=== PATIENT | female | born 1960 | race Caucasian/White ===

== ENCOUNTER → 2020-01-31 | Outpatient (CLI) | payer MEDICARE ==
[~2020-01-31] MED LIST: ACYC5CRE2 TP; ATOR10TA60 PO; CELE200C PO; CETI10TA16 PO; CITA40TA12 PO; FLUT100D IH; HYDR-2145 PO; HYDR-2769 PO; IOHEXOL 180 MG/ML 10 ML VIAL. ONE; IPRA0.2S5 IH; LEVO75TA PO; MULT-475 PO; OMEP20CA16 PO; OXYC5CAP PO; POTA10TA12 PO; PRAM0.255 PO; PREG200C PO; TIZA4TAB2 PO; VALA10008 PO; VENTOLIN HFA18 GM INH; methylPREDNISolone ACETATE 40 MG/ML VIAL. ONE; methylPREDNISolone ACETATE 80 MG/ML VIAL. ONE
--- NOTE | 2020-01-31 14:53 | PAIN ---
DATE OF SERVICE: 01/31/2020 INITIAL CONSULTATION FOR PAIN CLINIC CHIEF COMPLAINT: Low back and left lower extremity pain. HISTORY OF PRESENT ILLNESS: The patient is a 59-year-old female who presents with history of pain in the low back, left lower extremity for about 5 years. The patient reports it is in the low back, across the low back, mostly on the left side in the posterior gluteus, posterolateral thigh, lateral anterior thigh, anterior medial thigh, and medial lower leg. The patient reports she also has pain in both the knees, but this is separate from the low back and left leg. The patient reports it is constant, sharp, shooting in the leg, changes during the day, worse with activity, walking, standing, changing positions with numbness, radiating pain, awakens her from sleep at night at least once a night, does not affect her bowel or bladder control, but does affect her ability to walk. She generally has a cane with her and does have that with her today. The patient reports it is radiating pain in the left lower extremity, again worse with activity. The patient rates her disability rating from 0-10, 10 being the worst, is a 10 with family and home responsibilities, recreation, social activity, 8 with self-care and 8 with life support activities. The patient has had physical therapy in the past, trigger point injections, chiropractic treatment, exercise which she is doing currently and epidural injections which were helpful most recently in 2018 in [place]. The patient reports the pain has been getting worse now for about the past 6-7 months, but present for about 5 years. The patient reports no loss of motor function, but significant fatigability with the left lower extremity. She has tried Lyrica, oxycodone as well as [place], all of which have helped and currently taking hydrocodone at this time. PAST MEDICAL HISTORY: Significant for hearing loss, cigarette smoking 1 pack a day for 40 years, continues to smoke, gastroesophageal reflux, arthritis, restless leg syndrome, fibromyalgia. PREVIOUS SURGERY: Include cholecystectomy in 1993, previous C-sections, endometriosis ablation in 1994. The patient did have an MRI scan of the lumbar spine showing L3-L4 loss of disk space height with degenerative endplate changes, posterior disk bulging combined with facet ligamentum flavum causing [id number] bilateral neural foraminal narrowing. L4-L5 shows loss of disk space height with facet hypertrophy causing mild right-sided neural foraminal narrowing. L5-S1 shows no significant stenosis or narrowing. CURRENT MEDICATIONS: Include hydrocodone, Flovent, atorvastatin, Lyrica, tizanidine, Ventolin, valacyclovir, hydrochlorothiazide, Celebrex, ipratropium inhaler, Synthroid, cetirizine, omeprazole, Mirapex, hydrocodone, potassium, Celexa, and multivitamins. ALLERGIES: THE PATIENT IS ALLERGIC TO SULFA AND CHANTIX WELL ABILIFY. FAMILY HISTORY: Significant for arthritis, depression, thyroid disorders, kidney stones and Alzheimer's. SOCIAL HISTORY: The patient has history of depression. Drinks alcohol about 3-4 ounces, 3 times a week. Smokes about 1 pack a day and has for 40 years. Does not use any illegal, illicit or recreational drugs. The patient is single, lives locally in [place], [place]. REVIEW OF SYSTEMS: The patient's review of systems is positive for those items mentioned in history of present illness. All systems reviewed and otherwise negative. It is complete, full and well documented on the patient's chart. PHYSICAL EXAMINATION: VITAL SIGNS: The patient's blood pressure is 144/93, pulse 85, respirations 18, temperature 98.4 degrees Fahrenheit, height is 5 feet 1 inch, weight is 216 pounds. GENERAL: The patient is awake, alert, oriented, appropriate, very pleasant demeanor. HEENT: Shows normocephalic and atraumatic. Extraocular movements are intact and symmetrical. Oral cavity: Mucous membranes moist and pink. Dentition is intact. NECK: Shows anterior throat supple without palpable lymphadenopathy noted. Swallow reflex symmetrical. CHEST: Shows normal on inspection. Breath sounds are clear bilaterally. HEART: Shows S1, S2 clear. No murmurs auscultated. ABDOMEN: Soft, nontender, nondistended. No palpable organomegaly is noted. No rebound or guarding demonstrated. BACK: Shows spine grossly in the midline. Normal appearing thoracic kyphosis and minor flattening of lumbar lordotic curvature. Lumbar paraspinous muscle shows symmetrical on inspection, on palpation shows some moderate tenderness diffusely bilaterally going diffusely without significant radiation. The patient does show good rotational motion of lumbar spine, both laterally as well as extension and flexion without significant difficulty. No tenderness over the spinous processes, sacrum or sacroiliac regions. EXTREMITIES: Lower extremities show deep tendon reflexes at 2+ in the patellar, 1+ tendo-calcaneus tendons are equal. Motor exam is strong with 4/5 dorsiflexion, extension on the left, 5/5 on the right, quadriceps and hamstring flexion, however, is 5/5 bilaterally. Peripheral pulses are 1+ posterior tibia. No peripheral edema is noted bilaterally. The patient's lower extremities are warm and dry to touch, equal in color and appearance. Straight leg raise noted to be negative for reproduction of radicular symptoms bilaterally as is Gaenslen's and Jamie's maneuvers bilaterally. The patient is able to stand, stand on her toes and some minor difficulty with standing on the toes on the left foot, but without loss of balance. The patient is walking with a slight favoring gait and again has a cane; she is ambulating with in her right hand. SKIN: Shows warm and dry, good turgor. No edema. No sores, rashes or bruising. IMPRESSION: 1. This is a 59-year-old female with approximately 5-year history of low back and left lower extremity pain, worse over the past year or so in a radicular pattern. 2. MRI scan of lumbar spine as noted. 3. Arthritis. 4. Gastroesophageal reflux. 5. Fibromyalgia. 6. Cigarette smoking. PLAN: Options were discussed with the patient including conservative medical managements, physical therapies and interventional techniques. She would like to pursue interventional techniques. We discussed a lumbar epidural steroid injection using description as well as anatomical models to describe the procedure. Risks were then discussed including, but not limited to bleeding, infection, possibility of epidural hematoma, subsequent neurological compromise, dural puncture, headaches, spinal cord and/or nerve damage, side effects of steroid medication and poor results regarding pain control. The patient understands and wished to proceed. The patient will return to clinic in approximately 2 weeks for followup. She was counseled as to return appointment, activity level and side effects to be aware of. DIAGNOSES: Lumbar radiculopathy with lumbar degenerative disk disease, lumbar spinal stenosis. PROCEDURE: Lumbar epidural steroid injection, translaminar approach at L4-L5 level using C-arm fluoroscopic guidance under sterile prep and drape using local anesthetic. MEDICATION INJECTED: A total of 120 mg Depo-Medrol plus 10 mL of preservative-free normal saline and 2 mL of contrast. CONDITION AT DISCHARGE: Stable. The patient tolerated the procedure well, had no complications. MAGDIEL HONEYCUTT MD DR: SEEMA/yeni JOB#: [id number] / [id number] Thaddeus Ahmadi MD
== END ==
LOC: PNCL 10:56
PROVIDERS: ATTEND Anesthesiology
DX: M51.16 Intervertebral disc disorders with radiculopathy, lumbar region (principal); M48.061 Spinal stenosis, lumbar region without neurogenic claudication; F17.210 Nicotine dependence, cigarettes, uncomplicated; K21.9 Gastro-esophageal reflux disease without esophagitis; M79.7 Fibromyalgia; F32.9 Major depressive disorder, single episode, unspecified; Z87.39 Personal history of other diseases of the musculoskeletal system and connective tissue; Z90.49 Acquired absence of other specified parts of digestive tract; Z98.890 Other specified postprocedural states; Z72.89 Other problems related to lifestyle; Z88.1 Allergy status to other antibiotic agents; Z88.8 Allergy status to other drugs, medicaments and biological substances
CPT/HCPCS: 62323; J1030; J1040; Q9965

== ENCOUNTER → 2020-05-31 | Outpatient (CLI) | payer MEDICARE ==
[~2020-05-31] MED LIST changes: +ALBU2.5V8 IH; +ASPI81TA59 PO; +CYAN50004 PO; +CYCL10TA2 PO; +DULO30CA2 PO; +FLUT9.9S NS; -LEVO75TA PO; +LEVO75TA90 PO; +LEVO88TA4 PO; +MIRT15TA3 PO; +MULT-650 PO; +NEO; +OXYC15TA3 PO; +OXYC30TA3 PO; +PANT40TA77 PO; +PREG100C PO; +PREG50CA91 PO; +TRAM50TA PO; +UBID100C26 PO
--- NOTE | 2020-05-31 09:45 | PAIN ---
DATE OF SERVICE: 05/31/2020 PROGRESS NOTE FOR PAIN CLINIC DIAGNOSIS: Lumbar radiculopathy with lumbar degenerative disk disease, lumbar spinal stenosis. HISTORY OF PRESENT ILLNESS: The patient is a 60-year-old female who returns for followup status post lumbar epidural steroid injection x 1 on 01/31/2020. The patient did well with about 90-95% improvement for about 8 weeks. The patient reports pain is returning in the left lower extremity, now in the low back, posterior gluteus, posterolateral thigh, lateral anterior thigh, anterior medial thigh and medial lower leg. The patient reports it is worse with walking, standing, changing positions. Initially, she was doing much better with distance walking, doing household activities, traveling with greater ease and comfort. The patient reports it awakens her from sleep, but only about once every 8 hours or so. The patient reports she can reposition and get back to sleep. Rates her pain as a 10 on a scale of 10 at its worse over the past week, 8 on average, 6 at its least and is a 6 today. The patient reports it is sharp and tight, shooting, radiating, constant, sometimes severe with walking, standing, better with sitting or lying down. The patient reports no new motor or sensory deficits, no new bowel or bladder incontinence or other complaints. PHYSICAL EXAMINATION: VITAL SIGNS: The patient's blood pressure is 156/91, pulse 96, respirations 16, temperature 98.2 degrees Fahrenheit, height is 5 feet 1 inch, weight is 214 pounds. GENERAL: The patient is awake, alert, oriented, appropriate, very pleasant demeanor. HEENT: Head shows normocephalic, atraumatic. Extraocular movements are intact and symmetrical. Oral cavity: Mucous membranes moist and pink. Dentition is intact. NECK: Shows anterior throat supple without palpable lymphadenopathy noted. Swallow reflex symmetrical. CHEST: Shows normal on inspection. Breath sounds are clear bilaterally. HEART: Shows S1, S2 clear. No murmurs auscultated. ABDOMEN: Soft, nontender, nondistended. No palpable organomegaly is noted. No rebound or guarding demonstrated. BACK: Shows spine grossly in the midline. Normal appearing thoracic kyphosis and minor flattening of lumbar lordotic curvature. Lumbar paraspinous muscle shows symmetrical on inspection. On palpation shows some moderate tenderness diffusely bilaterally going diffusely without significant radiation. The patient has good rotational motion of lumbar spine, both laterally as well as extension and flexion without difficulty. EXTREMITIES: Lower extremities show deep tendon reflexes 2+ in the patellar, 1+ tendo-calcaneus tendons. Motor exam is approximately 4 on a scale of 5 with left ankle and 5/5 on the right. Peripheral pulses are 1+. No peripheral edema is noted bilaterally. PLAN: Options were discussed with the patient. The patient's old chart was reviewed as her current medication regimen updated. Current review of systems updated today as well. We will proceed with a second in a series of lumbar epidural steroid injection today with fluoroscopic guidance. Risks were again discussed including, but not limited to bleeding, infection, possibility of epidural hematoma, subsequent neurological compromise, dural puncture, headaches, spinal cord and/or nerve damage, side effects of steroid medication and poor results regarding pain control. The patient understands and wished to proceed. The patient will return to clinic in approximately 2 weeks for followup. She was counseled on return appointment, activity level and side effects to be aware of. DIAGNOSES: Lumbar radiculopathy with lumbar degenerative disk disease, lumbar spinal stenosis. PROCEDURE: Lumbar epidural steroid injection, translaminar approach L4-L5 level using C-arm fluoroscopic guidance under sterile prep and drape using local anesthetic. MEDICATION INJECTED: A total of 120 mg Depo-Medrol plus 10 mL of preservative-free normal saline and 2 mL of contrast. CONDITION AT DISCHARGE: Stable. The patient tolerated procedure well, had no complications. MAGDIEL HONEYCUTT MD DR: SEEMA/yeni JOB#: [id number] / [id number]
== END ==
LOC: PNCL 09:04
PROVIDERS: ATTEND Anesthesiology
DX: M51.16 Intervertebral disc disorders with radiculopathy, lumbar region (principal); M48.061 Spinal stenosis, lumbar region without neurogenic claudication
CPT/HCPCS: 62323; J1030; J1040; Q9965

== ENCOUNTER → 2020-06-15 | Outpatient (CLI) | payer MEDICARE ==
[~2020-06-15] MED LIST changes: -IOHEXOL 180 MG/ML 10 ML VIAL. ONE; -methylPREDNISolone ACETATE 40 MG/ML VIAL. ONE; -methylPREDNISolone ACETATE 80 MG/ML VIAL. ONE
--- NOTE | 2020-06-15 11:24 | RAD ---
MRI Lumbar Spine without contrast History: Low back pain, sciatica Technique: Multiplanar, multi sequential noncontrast MR imaging was performed of the lumbar spine. Comparison: None Findings: There is some motion degradation. Lumbar vertebral body stature is mostly maintained other than multilevel Schmorl's nodes. There is negligible anterior spondylolisthesis at L4-5 and T12-L1, negligible posterior subluxation of L1 relative to L2. There is advanced degenerative disc disease variably throughout the lumbar spine spine other than relative sparing of L5-S1 and on the left at L4-5. There is [id number] dextroscoliosis centered near L2. Conus terminates near L2-3. There is somewhat more heterogeneous signal in the thecal sac such as L1-L3 although could be accentuated by motion. There is a 1.5 cm T2 hyperintense lesion of the left kidney, more likely a cyst. T12-L1: Spinal canal and neural foramina are adequate. L1-L2: There is mild prominence of posterior epidural fat centrally. There is mild buckling of the ligamentum flavum. There is very minimal disc osteophyte complex. There is mild posterior narrowing of the left neural foramen by facet, right neural foramen adequate. Spinal canal is overall adequate. L2-L3: There is mild prominence of posterior epidural fat. There is mild facet degenerative change and [id number]-pm-[id number] buckling of the ligamentum flavum. There is minimal disc osteophyte complex. Spinal canal is adequate. Right neural foramen is adequate. There is fairly severe narrowing of the left neural foramen by disc osteophyte complex and protrusion in combination with facet degenerative change with contact of the exiting left L2 nerve root. L3-L4: There is prominence of posterior epidural fat centrally. There is mild to moderate buckling of the ligamentum flavum and mild facet hypertrophic change. There is minimal disc osteophyte complex and bulge. Combination of findings results in [id number] attenuation of the thecal sac mostly due to epidural lipomatosis. There is moderate narrowing of the left neural foramen with degree of contact of the exiting left L3 nerve root, narrowing from hypertrophied facet and minimal disc osteophyte complex and bulge. Right neural foramen is overall adequate. L4-L5: There is moderate right and mild left facet degenerative change. There is mild buckling of the ligamentum flavum. There is very minimal disc osteophyte complex greater in the right lateral recess and right neural foramen. Spinal canal is overall adequate. There is moderate narrowing of the right neural foramen mostly from inferiorly by disc osteophyte complex which contacts the undersurface of exiting right L4 nerve root in the neural foramen and proximal extraforaminal region. There is very mild narrowing of the left neural foramen. L5-S1: Spinal canal is adequate. There is mild buckling of the ligamentum flavum. There is moderate right greater than left facet degenerative change. There is a shallow protrusion in the proximal right extraforaminal region contacting the undersurface of the proximal extraforaminal right L5 nerve root without significant displacement. Neural foramina are not significantly narrowed. Impression: 1. There is multilevel advanced lumbar degenerative disc disease other than relative sparing of L5-S1. 2. There is lumbar dextroscoliosis. There is mild abnormal alignment as stated. 3. There is mild to moderate attenuation of the thecal sac at L3-4 mostly due to epidural lipomatosis. 4. There is lumbar neural foramina compromise as stated, more significant narrowing on the left at L2-3 with contact of the exiting left L2 nerve root, moderate narrowing on the left at L3-4 and on the right at L4-5. 5. There is heterogeneous signal in the thecal sac such as L1-L3, most likely due to motion artifact rather than underlying intradural pathology/mass. Electronically signed by: Iker Carlson MD (06/15/2020 11:21 AM) [id number]
== END ==
LOC: MRI 13:11
PROVIDERS: ATTEND Physical Medicine & Rehabilitation
DX: M51.37 Other intervertebral disc degeneration, lumbosacral region (principal); E88.2 Lipomatosis, not elsewhere classified; M48.061 Spinal stenosis, lumbar region without neurogenic claudication; M25.78 Osteophyte, vertebrae; M54.42 Lumbago with sciatica, left side
CPT/HCPCS: 72148

== ENCOUNTER 2020-07-13 15:28 | Inpatient (IN) | payer MEDICARE ==
[~2020-07-13] VITALS: Ht 167.6 cm; Wt 98.8 kg
--- NOTE | 2020-07-13 15:42 | RAD ---
EXAM: CT Head without IV contrast INDICATION: Reason: slurred speech, generalized weakness / Spl. Instructions: / History: TECHNIQUE: Multi-detector row CT images were obtained of the head without the use of IV contrast. All CT scans performed at this facility utilize dose optimization techniques as appropriate to the exam, including the following: Automated exposure control and adjustment of the mA and/or KV according to patient size (this includes techniques or standardized protocols for targeted exams where dose is indication/reason for exam). COMPARISON: None FINDINGS: BRAIN PARENCHYMA: No evidence of acute intraparenchymal hemorrhage or infarct. Mild generalized parenchymal volume loss and white matter low density compatible with chronic ischemic microvascular change is present. VENTRICLES & EXTRA-AXIAL SPACES: Ventricles are within normal limits. Basilar cisterns are patent. No pathologic extra-axial fluid collection or mass. ORBITS: Orbital contents are unremarkable. SINUSES: Visualized paranasal sinuses and mastoid air cells are clear. OSSEOUS & SOFT TISSUES: Calvarium and skull base are intact. IMPRESSION: No acute intracranial pathology. FOR INTERNAL CODING PURPOSES Critical result: Findings discussed with LYNNE MARCH at 07/13/2020 3:39 PM. RESULT CODE: (C) Electronically signed by: Mari De Los Santos MD (07/13/2020 3:39 PM) [id number]
[2020-07-13] MEDS ORDERED: ASPIRIN RECTAL 300 MG SUPP. PR ONE (15:45)
--- NOTE | 2020-07-13 15:52 | RAD ---
PORTABLE CHEST 1V History: Reason: weakness, CODE STROKE / Spl. Instructions: / History: Comparison: None. Findings: Mild interstitial thickening. No consultation or pleural effusion. No pneumothorax. Lower lung volumes. Impression: 1. Mild interstitial thickening, may represent pulmonary edema or infection. Electronically signed by: Ricardo Carr DO (07/13/2020 3:49 PM) [id number]
--- NOTE | 2020-07-13 15:55 | RAD ---
Cervical spine CT without contrast History:Generalized weakness, pain Technique: Noncontrast CT imaging was performed of the cervical spine. Multiplanar images are reviewed. Exposure: One or more of the following individualized dose reduction techniques were utilized for this examination: 1. Automated exposure control 2. Adjustment of the mA and/or kV according to patient size 3. Use of iterative reconstruction technique. Comparison: None Findings: There is some motion. No cervical spine acute fracture is identified. Vertebral body stature is preserved. There is minimal grade 1 anterior spondylolisthesis C2-3, C3-4, and C7-T1. Atlanto-axial distance is within normal limits. There is appropriate alignment of lateral masses of C1 relative to C2. Occipital condylar-C1 relationship is maintained. There is advanced degenerative disc disease greatest C4-5 to C6-7 and to a lesser degree at C3-4 and C7-T1. There are multilevel disc osteophyte complexes such is C4-5 to C6-7. There is likely central canal stenosis C6-7 about 9 to 10 mm. There is multilevel facet degenerative change. There is also some uncovertebral degenerative change. There is moderate to severe narrowing of the left C3-4 and right C4-5 neural foramina, somewhat lesser degree of narrowing at other levels such as bilaterally at C6-7 and on the left at C5-6 and C4-5. Impression: 1. No acute cervical spine fracture is identified. 2. There is advanced degenerative disc disease greatest C4-5 through C6-7 and to lesser degree at C3-4 and C7-T1. 3. There is likely mild spinal stenosis at C6-7. There is some variable multilevel cervical neural foramina compromise due to facet and uncovertebral degenerative change greatest on the left at C3-4 and on the right at C4-5. Electronically signed by: Iker Carlson MD (07/13/2020 3:52 PM) [id number]
[2020-07-13 16:12] LABS: BASO # 0.1 x10^3/uL (0.0-0.2); BASO % 1 % (0-3); EOS # 0.2 x10^3/uL (0.0-0.7); EOS % 2 % (0-3); HEMATOCRIT 40.4 % (36.0-47.0); HEMOGLOBIN 13.7 g/dL (12.0-15.5); LYMPH # 1.1 x10^3/uL (1.0-4.8); LYMPH % 10 % (24-48); MEAN CORPUSCULAR HEMOGLOBIN 32 pg (25-35); MEAN CORPUSCULAR HGB CONC 34 g/dL (31-37); MEAN CORPUSCULAR VOLUME 94 fL (79-100); MONO # 0.8 x10^3/uL (0.0-1.1); MONO % 7 % (0-9); NEUT # 9.1 x10^3/uL (1.8-7.7); NEUT % 81 % (31-73); PLATELET COUNT 241 x10^3/uL (140-400); RED BLOOD COUNT 4.28 x10^6/uL (3.50-5.40); RED CELL DISTRIBUTION WIDTH 14.7 % (11.5-14.5); WHITE BLOOD COUNT 11.3 x10^3/uL (4.0-11.0)
[2020-07-13 16:21] LABS: CREATININE 1.1 mg/dL (0.6-1.0); GFR 50.3; POTASSIUM 3.7 mmol/L (3.5-5.1)
[2020-07-13 16:24] LABS: PROTHROMBIN TIME PATIENT 12.9 SEC (11.7-14.0)
[2020-07-13 16:27] LABS: ACETAMIN < 2 mcg/ml (10-30); ALBUMIN 3.5 g/dL (3.4-5.0); ALBUMIN/GLOBULIN RATIO 0.9 (1.0-1.7); SALIC < 2.8 mg/dL (2.8-20.0); TOTAL BILIRUBIN 0.4 mg/dL (0.2-1.0); TOTAL PROTEIN 7.6 g/dL (6.4-8.2)
[2020-07-13] MEDS ORDERED: IV NORMAL SALINE 1000ML BAG 1,000 ML IV ONE ×2 (16:30→17:45)
[2020-07-13 16:47] LABS: BILIRUBIN,URINE NEGATIVE (NEG); CLARITY,URINE CLEAR; COLOR,URINE YELLOW; NITRITE,URINE NEGATIVE (NEG); PROTEIN,URINE NEGATIVE (NEG-TRACE); UROBILINOGEN,URINE 0.2 mg/dL (0.2 mg/dL)
[2020-07-13 16:53] LABS: HYALINE CASTS, URINE MANY /HPF; SQUAMOUS EPITHELIAL CELL,UR MANY /LPF
[2020-07-13 16:54] LABS: BACTERIA,URINE 0 /HPF (0-FEW); RBC,URINE 0 /HPF (0-2); WBC,URINE OCC /HPF (0-4)
--- NOTE | 2020-07-13 17:19 | PHYS DOC ---
Past Medical History Past Medical History: Fibromyalgia, High Cholesterol, Hypertension, Hypothyroid, Renal Disease, Unknown Additional Past Medical Histor: Metabolic encephalopathy Past Medical History Limited secondary to altered mental status Past Surgical History: Other Past Surgical History Limited secondary to altered mental status Smoking Status: Unknown if ever smoked Alcohol Use: None Drug Use: None Social History Limited secondary to altered mental status General Adult EDM: Chief Complaint: ALTERED MENTAL STATUS HPI: HPI: 60-year-old female presents via EMS with report of altered mental status upon family finding her altered on the floor at 1400. EMS reported concern for possible stroke. Last known well of patient was last night around 2215. Family reports hearing some noises from upstairs at approximately 1300. Family reported finding patient on the floor with some slurred speech and "jerking tremors". Family reports patient had had a similar event in the past that was thought to be secondary to overdose on her chronic pain medication. Patient with history of fibromyalgia. Family reports that brother who currently lives with patient has been keeping track of all patient's pain medications. Family does not think patient overdosed on any of her medications, illicit drugs, or alcohol. History of present illness limited secondary to altered mental status Review of Systems: Review of Systems: Limited secondary to altered mental status Current Medications: Current Medications Medications (Trade) Dose Ordered Sig/Kristen Start Time Stop Time Status Last Admin Dose Admin Aspirin (Aspirin Rectal Supp) 300 mg 1X ONCE 07/13/20 15:45 07/13/20 15:49 DC 07/13/20 16:01 300 MG Sodium Chloride 1,000 ml @ 1,000 mls/hr 1X ONCE 07/13/20 16:30 07/13/20 17:29 07/13/20 16:15 1,000 MLS/HR Allergies: Allergies: Allergies Coded Allergies Type Severity Reaction Last Updated Verified Sulfa (Sulfonamide Antibiotics) Allergy Intermediate 01/31/20 Yes aripiprazole Allergy Intermediate 05/22/20 Yes desvenlafaxine Allergy Intermediate 05/22/20 Yes varenicline Allergy Intermediate Unknown 01/31/20 Yes Physical Exam: PE: Constitutional: Well developed, obese, somnolent HENT: Normocephalic, atraumatic Eyes: Pupils dilated (5mm) and sluggish, EOMI, conjunctiva normal, no discharge, horizontal nystagmus noted Neck: Normal range of motion, no tenderness, supple Lungs & Thorax: No respiratory distress, equal chest rise and fall Abdomen: Soft, obese, no tenderness/guarding Skin: Warm, dry, no erythema, small abrasions noted to bilateral knees Extremities: No tenderness, no deformity, bilateral upper extremities with jerking motions left greater than right Neurologic: Somnolent but able to follow commands, patient with expressive aphasia and some dysarthria Psychologic: Limited, judgment abnormal Current Patient Data: Labs: Laboratory Tests Test 07/13/20 15:53 07/13/20 15:57 07/13/20 16:40 Glucose (Fingerstick) 81 mg/dL (70-99) White Blood Count 11.3 x10^3/uL (4.0-11.0) H Red Blood Count 4.28 x10^6/uL (3.50-5.40) Hemoglobin 13.7 g/dL (12.0-15.5) Hematocrit 40.4 % (36.0-47.0) Mean Corpuscular Volume 94 fL (79-100) Mean Corpuscular Hemoglobin 32 pg (25-35) Mean Corpuscular Hemoglobin Concent 34 g/dL (31-37) Red Cell Distribution Width 14.7 % (11.5-14.5) H Platelet Count 241 x10^3/uL (140-400) Neutrophils (%) (Auto) 81 % (31-73) H Lymphocytes (%) (Auto) 10 % (24-48) L Monocytes (%) (Auto) 7 % (0-9) Eosinophils (%) (Auto) 2 % (0-3) Basophils (%) (Auto) 1 % (0-3) Neutrophils # (Auto) 9.1 x10^3/uL (1.8-7.7) H Lymphocytes # (Auto) 1.1 x10^3/uL (1.0-4.8) Monocytes # (Auto) 0.8 x10^3/uL (0.0-1.1) Eosinophils # (Auto) 0.2 x10^3/uL (0.0-0.7) Basophils # (Auto) 0.1 x10^3/uL (0.0-0.2) Prothrombin Time 12.9 SEC (11.7-14.0) Prothrombin Time INR 1.0 (0.8-1.1) Activated Partial Thromboplast Time 25 SEC (24-38) Sodium Level 140 mmol/L (136-145) Potassium Level 3.7 mmol/L (3.5-5.1) Chloride Level 102 mmol/L (98-107) Carbon Dioxide Level 31 mmol/L (21-32) Anion Gap 7 (6-14) Blood Urea Nitrogen 25 mg/dL (7-20) H Creatinine 1.1 mg/dL (0.6-1.0) H Estimated GFR (Cockcroft-Gault) 50.3 BUN/Creatinine Ratio 23 (6-20) H Glucose Level 83 mg/dL (70-99) Lactic Acid Level 1.5 mmol/L (0.4-2.0) Calcium Level 9.0 mg/dL (8.5-10.1) Total Bilirubin 0.4 mg/dL (0.2-1.0) Aspartate Amino Transferase (AST) 29 U/L (15-37) Alanine Aminotransferase (ALT) 32 U/L (14-59) Alkaline Phosphatase 81 U/L (46-116) Ammonia < 10 mcmol/L (11-34) L Creatine Kinase 286 U/L (26-192) H Creatine Kinase MB (Mass) 7.3 ng/mL (0.0-3.6) H Creatine Kinase MB Relative Index 2.6 % (0-4) Troponin I Quantitative < 0.017 ng/mL (0.000-0.055) Total Protein 7.6 g/dL (6.4-8.2) Albumin 3.5 g/dL (3.4-5.0) Albumin/Globulin Ratio 0.9 (1.0-1.7) L Salicylates Level < 2.8 mg/dL (2.8-20.0) L Salicylate Last Dose Date Unknown Salicylate Last Dose Time Unknown Acetaminophen Level < 2 mcg/ml (10-30) L Acetaminophen Last Dose Date Unknown Acetaminophen Last Dose Time Unknown Ethyl Alcohol Level < 10 mg/dL (0-10) Urine Collection Type U cath Urine Color Yellow Urine Clarity Clear Urine pH 5.0 (<5.0-8.0) Urine Specific [place] 1.015 (1.000-1.030) Urine Protein Negative mg/dL (NEG-TRACE) Urine Glucose (UA) Negative mg/dL (NEG) Urine Ketones (Stick) Negative mg/dL (NEG) Urine Blood Negative (NEG) Urine Nitrite Negative (NEG) Urine Bilirubin Negative (NEG) Urine Urobilinogen Dipstick 0.2 mg/dL (0.2 mg/dL) Urine Leukocyte Esterase Small (NEG) Urine RBC 0 /HPF (0-2) Urine WBC Occ /HPF (0-4) Urine Squamous Epithelial Cells Many /LPF Urine Renal Epithelial Cells Few /LPF Urine Bacteria 0 /HPF (0-FEW) Urine Hyaline Casts Many /HPF Urine Mucus Marked /LPF Laboratory Tests 07/13/20 15:57 Laboratory Tests 07/13/20 15:57 Vital Signs: Vital Signs Date Time Temp Pulse Resp B/P (MAP) Pulse Ox O2 Delivery O2 Flow Rate FiO2 07/13/20 16:07 98.7 103 20 111/64 (80) 88 Room Air 98.7 EKG: EKG: @1558 Sinus tachycardia at 104bpm, NO ST elevation, QRS 118ms, QT/QTc 344/453ms, incomplete RBBB Radiology/Procedures: Radiology/Procedures: PROCEDURE: CT CODE STROKE HEAD WO EXAM: CT Head without IV contrast INDICATION: Reason: slurred speech, generalized weakness / Spl. Instructions: / History: TECHNIQUE: Multi-detector row CT images were obtained of the head without the use of IV contrast. All CT scans performed at this facility utilize dose optimization techniques as appropriate to the exam, including the following: Automated exposure control and adjustment of the mA and/or KV according to patient size (this includes techniques or standardized protocols for targeted exams where dose is indication/reason for exam). COMPARISON: None FINDINGS: BRAIN PARENCHYMA: No evidence of acute intraparenchymal hemorrhage or infarct. Mild generalized parenchymal volume loss and white matter low density compatible with chronic ischemic microvascular change is present. VENTRICLES & EXTRA-AXIAL SPACES: Ventricles are within normal limits. Basilar cisterns are patent. No pathologic extra-axial fluid collection or mass. ORBITS: Orbital contents are unremarkable. SINUSES: Visualized paranasal sinuses and mastoid air cells are clear. OSSEOUS & SOFT TISSUES: Calvarium and skull base are intact. IMPRESSION: No acute intracranial pathology. FOR INTERNAL CODING PURPOSES Critical result: Findings discussed with LYNNE MARCH at 07/13/2020 3:39 PM. RESULT CODE: (C) Electronically signed by: Mari De Los Santos MD (07/13/2020 3:39 PM) [id number] PROCEDURE: CT CERVICAL SPINE WO CONTRAST Cervical spine CT without contrast History:Generalized weakness, pain Technique: Noncontrast CT imaging was performed of the cervical spine. Multiplanar images are reviewed. Exposure: One or more of the following individualized dose reduction techniques were utilized for this examination: 1. Automated exposure control 2. Adjustment of the mA and/or kV according to patient size 3. Use of iterative reconstruction technique. Comparison: None Findings: There is some motion. No cervical spine acute fracture is identified. Vertebral body stature is preserved. There is minimal grade 1 anterior spondylolisthesis C2-3, C3-4, and C7-T1. Atlanto-axial distance is within normal limits. There is appropriate alignment of lateral masses of C1 relative to C2. Occipital condylar-C1 relationship is maintained. There is advanced degenerative disc disease greatest C4-5 to C6-7 and to a lesser degree at C3-4 and C7-T1. There are multilevel disc osteophyte complexes such is C4-5 to C6-7. There is likely central canal stenosis C6-7 about 9 to 10 mm. There is multilevel facet degenerative change. There is also some uncovertebral degenerative change. There is moderate to severe narrowing of the left C3-4 and right C4-5 neural foramina, somewhat lesser degree of narrowing at other levels such as bilaterally at C6-7 and on the left at C5-6 and C4-5. Impression: 1. No acute cervical spine fracture is identified. 2. There is advanced degenerative disc disease greatest C4-5 through C6-7 and to lesser degree at C3-4 and C7-T1. 3. There is likely mild spinal stenosis at C6-7. There is some variable multilevel cervical neural foramina compromise due to facet and uncovertebral degenerative change greatest on the left at C3-4 and on the right at C4-5. Electronically signed by: Iker Carlson MD (07/13/2020 3:52 PM) [id number] PROCEDURE: PORTABLE CHEST 1V PORTABLE CHEST 1V History: Reason: weakness, CODE STROKE / Spl. Instructions: / History: Comparison: None. Findings: Mild interstitial thickening. No consultation or pleural effusion. No pneumothorax. Lower lung volumes. Impression: 1. Mild interstitial thickening, may represent pulmonary edema or infection. Electronically signed by: Ricardo Carr DO (07/13/2020 3:49 PM) [id number] Course & Med Decision Making: Course & Med Decision Making Pertinent Labs and Imaging studies reviewed. (See chart for details) Patient presents with altered mental status. EMS with concern for possible stroke. Code stroke initiated. CT head without acute process. Last known well at 2215 last night. Patient not candidate for TPA at this time. Labs obtained and posted to chart. Chest x-ray without acute process. Discussed case with Dr. Hairston (neurology) who requests a stat MRI brain at this time. Patient requiring admission for further evaluation and treatment. Discussed with Dr. Che (hospitalist) who is in agreement with admission. Discussed findings and plan with family member, who acknowledges understanding and agreement. Kwan Disclaimer: Kwan Disclaimer: This electronic medical record was generated, in whole or in part, using a voice recognition dictation system. Departure Departure Impression: Primary Impression: Altered mental status Qualified Codes: R41.82 - Altered mental status, unspecified Additional Impression: Expressive aphasia Disposition: ADMITTED INPATIENT Admitting Physician: AIMEE (Chinedu) Condition: GUARDED Referrals: JOAQUIN MIN MD (PCP) Justicifation of Admission Dx: Justifications for Admission: Justification of Admission Dx: Yes Altered Mental Status: Altered Mental Status Comments: Expressive aphasia NIHSS Stroke Scale NIH Stroke Scale: NIH Stroke Scale Response (Comments) Value Level of Consciousness: 1 Not alert/arousable 1 LOC Questions: 0 Answers both correctly 0 LOC Commands: 0 Performs both tasks 0 Best Gaze: 0 Normal 0 Visual: 0 No visual loss 0 Facial Palsy: 0 Normal, symmetrical 0 Motor - Left Arm 0 No drift 0 Motor - Right Arm 0 No drift 0 Motor - Left Leg 0 No drift 0 Motor: Right Leg 0 No drift 0 Limb Ataxia: 0 Absent 0 Sensory: 0 No loss 0 Best Language: 2 Severe aphasia (Expressive) 2 Dysathria: 1 Mild to moderate 1 Extinction and Inattention: 0 Normal 0 Total 4 MARCH,LYNNE Mcclain DO Jul 13, 2020 17:19
[2020-07-13] MEDS ORDERED: DEXTROSE 50% 25 GM / 50ML DISP.SYRIN. IV PRN (17:45)
[2020-07-13] MEDS ORDERED: ONDANSETRON PF 4 MG/2 ML VIAL. IV PRN ×2 (17:45→22:00)
--- NOTE | 2020-07-13 17:52 | PDOC1 ---
History and Physical Date of Admission Date of Admission DATE: 07/13/20 TIME: 17:46 Identification/Chief Complaint Chief Complaint Altered mental status Source Source: Caregiver, Chart review History of Present Illness History of Present Illness Ms Arnett is a 60yo F w/ PMHx chronic back pain, fibromyalgia, morbid obesity and prior accidental opioid overdose in April 2020 who presents to [facility] emergency department on 07/12/2020 from [facility] for altered mental status per her son. At 1300 he heard some banging noises upstairs and checked on her approximately an hour later and found her on the floor next to her bed with slurred speech, unintelligible words and jerking tremors and unusual eye movements. She was last seen normal at 2215 on 07/12/2020. Seen bedside in ED she has an expressive aphasia, has been monitored with some bizarre movements, and has fine tremors in all 4 extremities, does withdraw from pain. Cycloplegic eye movement, she does not focus. Labs reveal WBC 11.3, Hb 13.7, platelets 214, INR 1, lactate 1.5, NA 140, K3.7, BUN 25, CR 1.1, glucose 83, CK 286, troponin 0. LFTs within normal limits. Sinus tachycardia at 104bpm, NO ST elevation, QRS 118ms, QT/QTc 344/453ms, incomplete RBBB Head CT with no acute abnormalities CT neck with no acute cervical spine fracture, but advanced degenerative disc disease greatest C4-5 through C6-7 and to lesser degree at C3-4 and C7-T1 with mild spinal stenosis at C6-7. CXR with mild interstitial thickening Code stroke was called, outside the window for tPA. MRI brain with no acute abnormality. After MRI results a UDS returned positive for Opioids and PCP. Admitted for further care. Past Medical History Musculoskeletal: low back pain, Osteoarthritis Past Surgical History Past Surgical History: No pertinent history Family History Family History: Family History Unknown Social History Smoke: No ALCOHOL: none Drugs: Other (PCP) Current Problem List Problem List Problems Medical Problems: (1) Altered mental status Status: Acute (2) Expressive aphasia Status: Acute Current Medications Current Medications Current Medications Aspirin (Aspirin Rectal Supp) 300 mg 1X ONCE NM Last administered on 07/13/20at 16:01; Start 07/13/20 at 15:45; Stop 9/4/20 at 15:49; Status DC Sodium Chloride 1,000 ml @ 1,000 mls/hr 1X ONCE IV Last administered on 07/13/20at 16:15; Start 07/13/20 at 16:30; Stop 07/13/20 at 17:29; Status DC Ondansetron HCl (Zofran) 4 mg PRN Q8HRS PRN IV NAUSEA/VOMITING; Start 07/13/20 at 17:45; Stop 07/14/20 at 17:44 Insulin Human Lispro (HumaLOG) 0-5 UNITS TIDWMEALS SQ ; Start 07/14/20 at 08:00 Dextrose (Dextrose 50%-Water Syringe) 12.5 gm PRN Q15MIN PRN IV SEE COMMENTS; Start 07/13/20 at 17:45 Sodium Chloride 1,000 ml @ 1,000 mls/hr 1X ONCE IV ; Start 07/13/20 at 17:45; Stop 07/13/20 at 18:44; Status UNV Active Scripts Active Reported Proair Hfa Inhaler (Albuterol Sulfate) 8.5 Gm Hfa.aer.ad 2 Puff IH PRN Q4-6HRS PRN 21 Days Flonase Allergy Relief (Fluticasone Propionate) 9.9 Ml [place].susp 2 Sprays NS DAILY Valacyclovir (Valacyclovir Hcl) 1,000 Mg Tablet 1,000 Mg PO PRN PRN Valacyclovir (Valacyclovir Hcl) 1,000 Mg Tablet 1 Tab PO DAILY Children's Aspirin (Aspirin) 81 Mg Tab.chew 81 Mg PO DAILY Tramadol Hcl 50 Mg Tablet 50 Mg PO Q6HRS PRN Mirtazapine 15 Mg Tablet 1 Tab PO QHS Cymbalta (Duloxetine Hcl) 30 Mg Capsule.dr 1 Cap PO DAILY Atorvastatin Calcium 10 Mg Tablet 1 Tab PO DAILY Levothyroxine Sodium 88 Mcg Tablet 1 Tab PO DAILY Lyrica (Pregabalin) 100 Mg Capsule 3 Cap PO HS Lyrica (Pregabalin) 50 Mg Capsule 25 Mg PO AM ONLY Pantoprazole Sodium (Pantoprazole Sodium) 40 Mg Tablet.dr 40 Mg PO DAILYAC Cyclobenzaprine Hcl 10 Mg Tablet 1 Tab PO TID Mirapex (Pramipexole Di-Hcl) 0.25 Mg Tablet 0.5 Mg PO HS Celebrex (Celecoxib) 200 Mg Capsule 200 Mg PO BID 30 Days Coq-10 (Ubidecarenone) 100 Mg Capsule 200 Mg PO DAILY Vitamin B-12 (Cyanocobalamin (Vitamin B-12)) 5,000 Mcg Tab.rapdis 1 Tab PO DAILY 30 Days Centrum Silver Women Tablet (Multivits-Min/Iron/FA/Lutein) 1 Each Tablet 1 Each PO DAILY [antwon 40] Allergies Allergies: Coded Allergies: Sulfa (Sulfonamide Antibiotics) (Verified Allergy, Intermediate, 01/31/20) aripiprazole (Verified Allergy, Intermediate, 05/22/20) desvenlafaxine (Verified Allergy, Intermediate, 05/22/20) varenicline (Verified Allergy, Intermediate, Unknown, 01/31/20) ROS Review of System Unable to obtain due to altered mental status Physical Exam General: No acute distress, Other (Obtunded) HEENT: Atraumatic, Other (Unusual cycloplegic eye movements, unable to assess pupillary response) Lungs: Clear to auscultation, Normal air movement Heart: S1S2, RRR, no thrills, no rubs, no gallops, no murmurs Abdomen: Normal bowel sounds, Soft, No tenderness, No hepatosplenomegaly, No masses Extremities: No clubbing, No cyanosis, No edema, Normal pulses, No tenderness/swelling Skin: No rashes, No breakdown, No significant lesion Neuro: Reflexes 2+, Other (increased tone, moving all 4 extremities, not following commands) Psych/Mental Status: Other (Unable to assess) Vitals Vitals Vital Signs Date Time Temp Pulse Resp B/P (MAP) Pulse Ox O2 Delivery O2 Flow Rate FiO2 07/13/20 16:54 100 18 95 07/13/20 16:07 98.7 111/64 (80) Room Air 98.7 Labs Labs Laboratory Tests Test 07/13/20 15:53 07/13/20 15:57 07/13/20 16:40 Glucose (Fingerstick) 81 mg/dL (70-99) White Blood Count 11.3 x10^3/uL (4.0-11.0) Red Blood Count 4.28 x10^6/uL (3.50-5.40) Hemoglobin 13.7 g/dL (12.0-15.5) Hematocrit 40.4 % (36.0-47.0) Mean Corpuscular Volume 94 fL (79-100) Mean Corpuscular Hemoglobin 32 pg (25-35) Mean Corpuscular Hemoglobin Concent 34 g/dL (31-37) Red Cell Distribution Width 14.7 % (11.5-14.5) Platelet Count 241 x10^3/uL (140-400) Neutrophils (%) (Auto) 81 % (31-73) Lymphocytes (%) (Auto) 10 % (24-48) Monocytes (%) (Auto) 7 % (0-9) Eosinophils (%) (Auto) 2 % (0-3) Basophils (%) (Auto) 1 % (0-3) Neutrophils # (Auto) 9.1 x10^3/uL (1.8-7.7) Lymphocytes # (Auto) 1.1 x10^3/uL (1.0-4.8) Monocytes # (Auto) 0.8 x10^3/uL (0.0-1.1) Eosinophils # (Auto) 0.2 x10^3/uL (0.0-0.7) Basophils # (Auto) 0.1 x10^3/uL (0.0-0.2) Prothrombin Time 12.9 SEC (11.7-14.0) Prothromb Time International Ratio 1.0 (0.8-1.1) Activated Partial Thromboplast Time 25 SEC (24-38) Sodium Level 140 mmol/L (136-145) Potassium Level 3.7 mmol/L (3.5-5.1) Chloride Level 102 mmol/L (98-107) Carbon Dioxide Level 31 mmol/L (21-32) Anion Gap 7 (6-14) Blood Urea Nitrogen 25 mg/dL (7-20) Creatinine 1.1 mg/dL (0.6-1.0) Estimated GFR (Cockcroft-Gault) 50.3 BUN/Creatinine Ratio 23 (6-20) Glucose Level 83 mg/dL (70-99) Lactic Acid Level 1.5 mmol/L (0.4-2.0) Calcium Level 9.0 mg/dL (8.5-10.1) Total Bilirubin 0.4 mg/dL (0.2-1.0) Aspartate Amino Transf (AST/SGOT) 29 U/L (15-37) Alanine Aminotransferase (ALT/SGPT) 32 U/L (14-59) Alkaline Phosphatase 81 U/L (46-116) Ammonia < 10 mcmol/L (11-34) Creatine Kinase 286 U/L (26-192) Creatine Kinase MB (Mass) 7.3 ng/mL (0.0-3.6) Creatine Kinase MB Relative Index 2.6 % (0-4) Troponin I Quantitative < 0.017 ng/mL (0.000-0.055) Total Protein 7.6 g/dL (6.4-8.2) Albumin 3.5 g/dL (3.4-5.0) Albumin/Globulin Ratio 0.9 (1.0-1.7) Salicylates Level < 2.8 mg/dL (2.8-20.0) Salicylate Last Dose Date Unknown Salicylate Last Dose Time Unknown Acetaminophen Level < 2 mcg/ml (10-30) Acetaminophen Last Dose Date Unknown Acetaminophen Last Dose Time Unknown Ethyl Alcohol Level < 10 mg/dL (0-10) Urine Collection Type U cath Urine Color Yellow Urine Clarity Clear Urine pH 5.0 (<5.0-8.0) Urine Specific [place] 1.015 (1.000-1.030) Urine Protein Negative mg/dL (NEG-TRACE) Urine Glucose (UA) Negative mg/dL (NEG) Urine Ketones (Stick) Negative mg/dL (NEG) Urine Blood Negative (NEG) Urine Nitrite Negative (NEG) Urine Bilirubin Negative (NEG) Urine Urobilinogen Dipstick 0.2 mg/dL (0.2 mg/dL) Urine Leukocyte Esterase Small (NEG) Urine RBC 0 /HPF (0-2) Urine WBC Occ /HPF (0-4) Urine Squamous Epithelial Cells Many /LPF Urine Renal Epithelial Cells Few /LPF Urine Bacteria 0 /HPF (0-FEW) Urine Hyaline Casts Many /HPF Urine Mucus Marked /LPF Laboratory Tests Test 07/13/20 15:53 07/13/20 15:57 07/13/20 16:40 Glucose (Fingerstick) 81 mg/dL (70-99) White Blood Count 11.3 x10^3/uL (4.0-11.0) Red Blood Count 4.28 x10^6/uL (3.50-5.40) Hemoglobin 13.7 g/dL (12.0-15.5) Hematocrit 40.4 % (36.0-47.0) Mean Corpuscular Volume 94 fL (79-100) Mean Corpuscular Hemoglobin 32 pg (25-35) Mean Corpuscular Hemoglobin Concent 34 g/dL (31-37) Red Cell Distribution Width 14.7 % (11.5-14.5) Platelet Count 241 x10^3/uL (140-400) Neutrophils (%) (Auto) 81 % (31-73) Lymphocytes (%) (Auto) 10 % (24-48) Monocytes (%) (Auto) 7 % (0-9) Eosinophils (%) (Auto) 2 % (0-3) Basophils (%) (Auto) 1 % (0-3) Neutrophils # (Auto) 9.1 x10^3/uL (1.8-7.7) Lymphocytes # (Auto) 1.1 x10^3/uL (1.0-4.8) Monocytes # (Auto) 0.8 x10^3/uL (0.0-1.1) Eosinophils # (Auto) 0.2 x10^3/uL (0.0-0.7) Basophils # (Auto) 0.1 x10^3/uL (0.0-0.2) Prothrombin Time 12.9 SEC (11.7-14.0) Prothromb Time International Ratio 1.0 (0.8-1.1) Activated Partial Thromboplast Time 25 SEC (24-38) Sodium Level 140 mmol/L (136-145) Potassium Level 3.7 mmol/L (3.5-5.1) Chloride Level 102 mmol/L (98-107) Carbon Dioxide Level 31 mmol/L (21-32) Anion Gap 7 (6-14) Blood Urea Nitrogen 25 mg/dL (7-20) Creatinine 1.1 mg/dL (0.6-1.0) Estimated GFR (Cockcroft-Gault) 50.3 BUN/Creatinine Ratio 23 (6-20) Glucose Level 83 mg/dL (70-99) Lactic Acid Level 1.5 mmol/L (0.4-2.0) Calcium Level 9.0 mg/dL (8.5-10.1) Total Bilirubin 0.4 mg/dL (0.2-1.0) Aspartate Amino Transf (AST/SGOT) 29 U/L (15-37) Alanine Aminotransferase (ALT/SGPT) 32 U/L (14-59) Alkaline Phosphatase 81 U/L (46-116) Ammonia < 10 mcmol/L (11-34) Creatine Kinase 286 U/L (26-192) Creatine Kinase MB (Mass) 7.3 ng/mL (0.0-3.6) Creatine Kinase MB Relative Index 2.6 % (0-4) Troponin I Quantitative < 0.017 ng/mL (0.000-0.055) Total Protein 7.6 g/dL (6.4-8.2) Albumin 3.5 g/dL (3.4-5.0) Albumin/Globulin Ratio 0.9 (1.0-1.7) Salicylates Level < 2.8 mg/dL (2.8-20.0) Salicylate Last Dose Date Unknown Salicylate Last Dose Time Unknown Acetaminophen Level < 2 mcg/ml (10-30) Acetaminophen Last Dose Date Unknown Acetaminophen Last Dose Time Unknown Ethyl Alcohol Level < 10 mg/dL (0-10) Urine Collection Type U cath Urine Color Yellow Urine Clarity Clear Urine pH 5.0 (<5.0-8.0) Urine Specific [place] 1.015 (1.000-1.030) Urine Protein Negative mg/dL (NEG-TRACE) Urine Glucose (UA) Negative mg/dL (NEG) Urine Ketones (Stick) Negative mg/dL (NEG) Urine Blood Negative (NEG) Urine Nitrite Negative (NEG) Urine Bilirubin Negative (NEG) Urine Urobilinogen Dipstick 0.2 mg/dL (0.2 mg/dL) Urine Leukocyte Esterase Small (NEG) Urine RBC 0 /HPF (0-2) Urine WBC Occ /HPF (0-4) Urine Squamous Epithelial Cells Many /LPF Urine Renal Epithelial Cells Few /LPF Urine Bacteria 0 /HPF (0-FEW) Urine Hyaline Casts Many /HPF Urine Mucus Marked /LPF Images Images CT Cervical Spine: There is some motion. No cervical spine acute fracture is identified. Vertebral body stature is preserved. There is minimal grade 1 anterior spondylolisthesis C2-3, C3-4, and C7-T1. Atlanto-axial distance is within normal limits. There is appropriate alignment of lateral masses of C1 relative to C2. Occipital condylar-C1 relationship is maintained. There is advanced degenerative disc disease greatest C4-5 to C6-7 and to a lesser degree at C3-4 and C7-T1. There are multilevel disc osteophyte complexes such is C4-5 to C6-7. There is likely central canal stenosis C6-7 about 9 to 10 mm. There is multilevel facet degenerative change. There is also some uncovertebral degenerative change. There is moderate to severe narrowing of the left C3-4 and right C4-5 neural foramina, somewhat lesser degree of narrowing at other levels such as bilaterally at C6-7 and on the left at C5-6 and C4-5. Impression: 1. No acute cervical spine fracture is identified. 2. There is advanced degenerative disc disease greatest C4-5 through C6-7 and to lesser degree at C3-4 and C7-T1. 3. There is likely mild spinal stenosis at C6-7. There is some variable multilevel cervical neural foramina compromise due to facet and uncovertebral degenerative change greatest on the left at C3-4 and on the right at C4-5. CT Head: BRAIN PARENCHYMA: No evidence of acute intraparenchymal hemorrhage or infarct. Mild generalized parenchymal volume loss and white matter low density compatible with chronic ischemic microvascular change is present. VENTRICLES & EXTRA-AXIAL SPACES: Ventricles are within normal limits. Basilar cisterns are patent. No pathologic extra-axial fluid collection or mass. ORBITS: Orbital contents are unremarkable. SINUSES: Visualized paranasal sinuses and mastoid air cells are clear. OSSEOUS & SOFT TISSUES: Calvarium and skull base are intact. IMPRESSION: No acute intracranial pathology. CXR: Mild interstitial thickening. No consultation or pleural effusion. No pneumothorax. Lower lung volumes. Impression: 1. Mild interstitial thickening, may represent pulmonary edema or infection. VTE Prophylaxis Ordered VTE Prophylaxis Devices: No VTE Pharmacological Prophylaxi: Yes Assessment/Plan Assessment/Plan A/P: Acute toxic encephalopathy - due to opioid and PCP use. Will give IVF Chronic opioids - have friends and family educated on narcan and given prescript ion by her prescribing physician given this is a second admission within a 3 month period with prior requiring vent chronic back pain Fibromyalgia Degenerative disk disease of lumbar vertebrae HLD Respiratory depression - down to 88% on room air Abnormal CXR - likely from atelectasis 2/2 opioid use, will monitor Morbid Obesity - will have work and family life consultant to see FEN - NPO, D5 1/2 NSS w/ 20meq KCL PPX - lovenox FULL CODE Dispo - inpatient for above Justifications for Admission Other Justification JENI BERRY MD Jul 13, 2020 17:52
[2020-07-13 18:37] LABS: AMPHETAMINE/METHAMPHETAMINE NEG (NEG); BARBITURATES NEG (NEG); BENZODIAZEPINES NEG (NEG); CANNABINOIDS NEG (NEG); COCAINE NEG (NEG); METHADONE NEG (NEG); OPIATES POS (NEG); PHENCYCLIDINE POS (NEG)
--- NOTE | 2020-07-13 20:16 | RAD ---
Exam: MRI brain without contrast INDICATION: Expressive aphasia, concern for stroke TECHNIQUE: Multiplanar multisequence MRI of the brain was obtained without the administration of IV contrast. Comparisons: CT head without contrast same day FINDINGS: No area of increased signal on DWI sequence to suggest restricted diffusion. There is mild T2/FLAIR hyperintense signal in periventricular white matter. No focal parenchymal lesion or hemorrhage. Ventricular system is within normal limits without compression hydrocephalus. Basal cisterns are well maintained. Globes and intraorbital contents are normal. Craniocervical junction is normal. Midline structures are within normal limits. Bone marrow signal is normal. IMPRESSION: 1. No evidence for acute ischemia. 2. Mild T2/FLAIR hyperintense signal the periventricular white matter favored represent chronic small vessel ischemic change. Electronically signed by: Korin Donohue MD (07/13/2020 8:13 PM) [id number]
[2020-07-13 20:30] VITALS: BP 103/46
--- NOTE | 2020-07-13 20:31 | NUR ---
Pt. arrived around 2029 via bed from ED w/ AMS and expressive aphasia. She is A/O x2-3 and will make some needs known.
[2020-07-13] MEDS ORDERED: POTASSIUM CL 20MEQ D5-0.45NACL 1,000 ML IV SCH (22:00)
[2020-07-13] MEDS ORDERED: ACETAMINOPHEN 325 MG TABLET. PO PRN (22:00)
[2020-07-13] MEDS ORDERED: ALBUTEROL SULFATE 2.5 MG/3 ML NEBU. INH PRN (22:00)
[2020-07-13 23:00] VITALS: BP 92/62
[2020-07-13] MEDS: ATORVASTATIN CALCIUM 10 MG TABLET. PO SCH (23:16)
[2020-07-13] MEDS: MIRTAZAPINE 15 MG TABLET PO SCH (23:16)
[2020-07-13] MEDS: CELECOXIB 100 MG CAPSULE. PO SCH (23:16)
[2020-07-13] MEDS: ENOXAPARIN 40 MG/0.4 ML SYRINGE. SQ SCH (23:16)
--- NOTE | 2020-07-14 00:23 | CONS ---
DATE OF CONSULTATION: 07/13/2020 REFERRING PHYSICIAN: Yariel Che MD REASON FOR CONSULTATION: Encephalopathy. HISTORY OF PRESENT ILLNESS: The patient is a 60-year-old woman with fibromyalgia, chronic back pain and morbid obesity, who was recently admitted to [facility] in 04/2020 with an accidental opioid overdose and severe respiratory depression requiring intubation. She states that she is no longer on narcotics. Her son found her with altered mental status. At 1300, he heard some banging noises upstairs and checked on her approximately half hour later and found her on the floor next to the bed with slurred speech, unintelligible words and jerking tremor with unusual eye movements. Last known normal was 07/12/2020 at 2215 hours. In the Emergency Room, she did not seem to talk and had an expressive aphasia. She had some bizarre movements and fine tremors in all 4 extremities. She did not seem to focus. I was contacted by the Emergency Room and recommended an MRI of the brain, which was performed unfortunately found to be negative. She has been gradually improving. She is not able to give me much insight into why she was admitted or what symptoms, she was experiencing. She does definitely denied having headache. She has chronic back pain. PAST MEDICAL HISTORY: 1. Lower back pain. 2. Osteoarthritis. 3. History of respiratory failure. 4. Fibromyalgia. 5. History of acute kidney injury. 6. Hyperlipidemia. ALLERGIES: SULFA, ARIPIPRAZOLE, DESVENLAFAXINE, AND VARENICLINE. FAMILY HISTORY: Noncontributory. SOCIAL HISTORY: Unobtainable. She apparently lives with her son. She does not smoke tobacco or drink alcohol. She may have a history of recreational drug usage. REVIEW OF SYSTEMS: She denies headache. She has no change of vision or hearing. She has been able to chew and swallow. She is not complaining of shortness of breath, chest or abdominal pain. She has chronic lower back pain. She has not had fever or rash. Denies any gastrointestinal or genitourinary complaint. She does not complain of bruising, bleeding or swelling. PHYSICAL EXAMINATION: VITAL SIGNS: The blood pressure was 111/64, pulse 90, respirations 18, temperature 98.7 degrees axillary. Oximetry was 100%. GENERAL: She was awake, but poorly focused. Attention and concentration were severely impaired. She could follow commands, but I had to keep her focused at the moment. She had difficulty answering questions and would digress to nonsensical comments. She was not well oriented. NEUROLOGIC: Examination of the cranial nerves revealed visual gill were full to confrontation. Extraocular movements were intact. The eyes were conjugate. Pursuit movements were smooth and saccadic eye movements were without dysmetria. Pupils were 3 mm and reacted. Facial sensation was intact. The muscles of mastication and facial expression were powerful symmetrically. Hearing was intact to finger rub. The palate arched symmetrically and the tongue was midline with full motion. Sternocleidomastoid and trapezius were powerful. Muscle bulk and tone was normal. There was no arm drift. There may have been some asterixis. She had myoclonic jerks. Power was full and symmetric in the upper and lower extremities. Reflexes 2/4 and symmetric in the upper extremities at the knees, but absent at both ankles. Toes were not upgoing. Coordination testing with [id number] was fair. She had difficulty grasping the concepts. Sensory exam was intact to pain, light touch, cold thermal and vibration. Proprioception was also intact, but she did not have the focus for graphesthesia testing. Gait was not testable. NECK: Auscultation of the carotid arteries did not reveal a bruit. HEART: Rhythm was regular without a murmur. EXTREMITIES: Peripheral pulses were symmetric in the hands and feet. She had some evidence of abrasions of her knees. LABORATORY RESULTS: CBC was performed 07/13/2020 revealing an elevated white count of 11.3 with normal hemoglobin, hematocrit and platelet count. Chemistries were performed 07/13/2020. This revealed normal electrolytes. BUN was elevated at 25 and creatinine of 1.1 with a GFR that calculated at 50.3. Glucose was 83. Calcium was normal. Liver enzymes were not elevated. CPK was elevated to 286. Total protein and albumin were normal. Troponins were not elevated. Ammonia was not elevated nor was lactic acid. Coagulation studies were performed 07/13/2020 revealing a PT/INR of 1 and PTT of 25. Urinalysis was performed 07/13/2020 revealing a small amount of leukocyte esterase, occasional white cells and many squamous epithelial cells and many hyaline casts. Toxicology was performed with urine drug screen positive for opiates as well as phencyclidine. Alcohol was not detected, nor was salicylate or acetaminophen. DIAGNOSTIC RESULTS: CT scan of the head was performed 07/13/2020 did not reveal any acute finding. CT scan of the cervical spine was performed 07/13/2020 revealing no acute cervical spine fracture. There was advanced degenerative disk disease. Mild stenosis was present at C6-C7. Chest x-ray was performed 07/13/2020 revealing mild interstitial thickening, which may represent pulmonary edema or infection. MRI brain was performed 07/13/2020 without contrast. There was no evidence for acute ischemia. There was mild T2/FLAIR hyperintense signal in the periventricular white matter, suggesting chronic small vessel disease. IMPRESSION: The patient is a 60-year-old woman who presented encephalopathic. Search for an infection was not fruitful. She does not appear to have a definite infection, although possibly in the lungs. She denies opiates, but in fact urine drug screen is positive for opiates as well as PCP. This certainly this type of drug exposure could certainly explain this encephalopathic process, which is gradually improving. I do not see anything focal neurologically. I see her attention and concentration is impaired, which could certainly be drug effect. I am relieved the MRI did not show stroke. She will need some assistance from social service and potentially referral to a drug rehabilitation. ELISEO TYLER MD DR: VINNIE/yeni JOB#: [id number] / [id number]
[2020-07-14 03:00] VITALS: BP 120/88
[2020-07-14 05:01] LABS: CHOLESTEROL/HDL RATIO 2.4
--- NOTE | 2020-07-14 05:22 | NUR ---
Sarai's daughter Claudia called late to tell me that Sarai's brother Ladarius found an undated suicide note and a bottle of her narcotics that is half-full when the prescription was just recently filled. I asked Sarai about it and she denies taking the pills and that she wrote the note roughly 2 weeks ago. She denies having any thoughts now.
[2020-07-14] MEDS: LEVOTHYROXINE 88 MCG TABLET PO SCH (06:08)
[2020-07-14 06:31] LABS: CALCIUM 8.3 mg/dL (8.5-10.1); CREATININE 0.9 mg/dL (0.6-1.0); GFR 63.4; MAGNESIUM 1.9 mg/dL (1.8-2.4); POTASSIUM 3.8 mmol/L (3.5-5.1)
[2020-07-14 07:59] VITALS: BP 86/55
[2020-07-14] MEDS: INSULIN LISPRO 300 UNITS/3 ML VIAL. SQ SCH ×3 (08:00→18:45)
[2020-07-14 08:35] LABS: BASO % 1 % (0-3); EOS # 0.2 x10^3/uL (0.0-0.7); EOS % 2 % (0-3); HEMOGLOBIN 11.6 g/dL (12.0-15.5); LYMPH # 1.9 x10^3/uL (1.0-4.8); LYMPH % 21 % (24-48); MEAN CORPUSCULAR HEMOGLOBIN 32 pg (25-35); MEAN CORPUSCULAR HGB CONC 33 g/dL (31-37); MEAN CORPUSCULAR VOLUME 95 fL (79-100); MONO # 0.7 x10^3/uL (0.0-1.1); MONO % 7 % (0-9); NEUT # 6.4 x10^3/uL (1.8-7.7); NEUT % 70 % (31-73); PLATELET COUNT 202 x10^3/uL (140-400); RED BLOOD COUNT 3.68 x10^6/uL (3.50-5.40); RED CELL DISTRIBUTION WIDTH 15.1 % (11.5-14.5); WHITE BLOOD COUNT 9.2 x10^3/uL (4.0-11.0)
[2020-07-14] MEDS ORDERED: NON FORMULARY ITEM (Ubidecarenone (Coq-10) 200 MG) PO SCH (09:00)
--- NOTE | 2020-07-14 10:44 | EKG ---
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
[2020-07-14 11:59] VITALS: BP 107/52
--- NOTE | 2020-07-14 13:15 | NUR ---
PATIENTS' DAUGHTER AND HER BROTHER HERE TO VISIT AND INFORMED THIS LOG BUYER THAT THEY HAD CONCERNS ABOUT PATIENT TRYING TO HARM HERSELF, INFORMED ME THAT PATIENT HAD TAKEN A HANDFUL OF MEDICATIONS TWICE WELL WRITING A SUICIDE NOTE AND ADDRESSING IT TO HER FAMILY, SUICIDE NOTE WAS GIVEN TO THIS LOG BUYER, COPY MADE AND PLACED IN CHART, ORIGINAL GIVEN BACK TO FAMILY MEMBERS, DR. HOLLIDAY INFORMED, SEE ORDERS.
--- NOTE | 2020-07-14 14:08 | PDOC ---
[employer] PROGRESS NOTE Date of Service DOS: DATE: 07/14/20 TIME: 14:06 Chief Complaint Chief Complaint Altered mental status History of Present Illness History of Present Illness Patient evaluated with family at bedside. Patient admits to intentionally trying to overdose on her home medications, and left a suicide note to her family members. Per her family, she is more lucid today, but still with some bouts of confusion. Discussed with RN, consultation was placed to psychiatry. Vitals/I&O Vitals/I&O: Vital Signs Date Time Temp Pulse Resp B/P (MAP) Pulse Ox O2 Delivery O2 Flow Rate FiO2 07/14/20 11:59 98.5 18 18 107/52 (70) 95 Room Air 98.5 I & O 07/13/20 07/13/20 07/14/20 15:00 23:00 07:00 Intake Total 2000 ml 0 ml Output Total 100 ml Balance 1900 ml 0 ml Physical Exam General: Alert, Oriented X3, No acute distress, Other (Obtunded) Heart: Regular rate, Normal S1, Normal S2 Lungs: Clear Abdomen: Normal bowel sounds, Soft, No tenderness, No hepatosplenomegaly, No masses Extremities: No clubbing, No cyanosis, No edema, Normal pulses, No tenderness/swelling Skin: No rashes, No breakdown, No significant lesion Labs Labs: Laboratory Tests Test 07/13/20 15:53 07/13/20 15:57 07/13/20 16:40 07/13/20 17:44 Glucose (Fingerstick) 81 mg/dL (70-99) 71 mg/dL (70-99) White Blood Count 11.3 x10^3/uL (4.0-11.0) Red Blood Count 4.28 x10^6/uL (3.50-5.40) Hemoglobin 13.7 g/dL (12.0-15.5) Hematocrit 40.4 % (36.0-47.0) Mean Corpuscular Volume 94 fL (79-100) Mean Corpuscular Hemoglobin 32 pg (25-35) Mean Corpuscular Hemoglobin Concent 34 g/dL (31-37) Red Cell Distribution Width 14.7 % (11.5-14.5) Platelet Count 241 x10^3/uL (140-400) Neutrophils (%) (Auto) 81 % (31-73) Lymphocytes (%) (Auto) 10 % (24-48) Monocytes (%) (Auto) 7 % (0-9) Eosinophils (%) (Auto) 2 % (0-3) Basophils (%) (Auto) 1 % (0-3) Neutrophils # (Auto) 9.1 x10^3/uL (1.8-7.7) Lymphocytes # (Auto) 1.1 x10^3/uL (1.0-4.8) Monocytes # (Auto) 0.8 x10^3/uL (0.0-1.1) Eosinophils # (Auto) 0.2 x10^3/uL (0.0-0.7) Basophils # (Auto) 0.1 x10^3/uL (0.0-0.2) Prothrombin Time 12.9 SEC (11.7-14.0) Prothromb Time International Ratio 1.0 (0.8-1.1) Activated Partial Thromboplast Time 25 SEC (24-38) Sodium Level 140 mmol/L (136-145) Potassium Level 3.7 mmol/L (3.5-5.1) Chloride Level 102 mmol/L (98-107) Carbon Dioxide Level 31 mmol/L (21-32) Anion Gap 7 (6-14) Blood Urea Nitrogen 25 mg/dL (7-20) Creatinine 1.1 mg/dL (0.6-1.0) Estimated GFR (Cockcroft-Gault) 50.3 BUN/Creatinine Ratio 23 (6-20) Glucose Level 83 mg/dL (70-99) Lactic Acid Level 1.5 mmol/L (0.4-2.0) Calcium Level 9.0 mg/dL (8.5-10.1) Total Bilirubin 0.4 mg/dL (0.2-1.0) Aspartate Amino Transf (AST/SGOT) 29 U/L (15-37) Alanine Aminotransferase (ALT/SGPT) 32 U/L (14-59) Alkaline Phosphatase 81 U/L (46-116) Ammonia < 10 mcmol/L (11-34) Creatine Kinase 286 U/L (26-192) Creatine Kinase MB (Mass) 7.3 ng/mL (0.0-3.6) Creatine Kinase MB Relative Index 2.6 % (0-4) Troponin I Quantitative < 0.017 ng/mL (0.000-0.055) Total Protein 7.6 g/dL (6.4-8.2) Albumin 3.5 g/dL (3.4-5.0) Albumin/Globulin Ratio 0.9 (1.0-1.7) Salicylates Level < 2.8 mg/dL (2.8-20.0) Salicylate Last Dose Date Unknown Salicylate Last Dose Time Unknown Acetaminophen Level < 2 mcg/ml (10-30) Acetaminophen Last Dose Date Unknown Acetaminophen Last Dose Time Unknown Ethyl Alcohol Level < 10 mg/dL (0-10) Urine Collection Type U cath Urine Color Yellow Urine Clarity Clear Urine pH 5.0 (<5.0-8.0) Urine Specific [place] 1.015 (1.000-1.030) Urine Protein Negative mg/dL (NEG-TRACE) Urine Glucose (UA) Negative mg/dL (NEG) Urine Ketones (Stick) Negative mg/dL (NEG) Urine Blood Negative (NEG) Urine Nitrite Negative (NEG) Urine Bilirubin Negative (NEG) Urine Urobilinogen Dipstick 0.2 mg/dL (0.2 mg/dL) Urine Leukocyte Esterase Small (NEG) Urine RBC 0 /HPF (0-2) Urine WBC Occ /HPF (0-4) Urine Squamous Epithelial Cells Many /LPF Urine Renal Epithelial Cells Few /LPF Urine Bacteria 0 /HPF (0-FEW) Urine Hyaline Casts Many /HPF Urine Mucus Marked /LPF Urine Opiates Screen Pos (NEG) Urine Methadone Screen Neg (NEG) Urine Barbiturates Neg (NEG) Urine Phencyclidine Screen Pos (NEG) Urine Amphetamine/Methamphetamine Neg (NEG) Urine Benzodiazepines Screen Neg (NEG) Urine Cocaine Screen Neg (NEG) Urine Cannabinoids Screen Neg (NEG) Urine Ethyl Alcohol Neg (NEG) Test 07/13/20 21:00 07/14/20 01:03 07/14/20 04:00 07/14/20 06:45 Troponin I Quantitative < 0.017 ng/mL (0.000-0.055) < 0.017 ng/mL (0.000-0.055) Glucose (Fingerstick) 91 mg/dL (70-99) 86 mg/dL (70-99) White Blood Count 9.2 x10^3/uL (4.0-11.0) Red Blood Count 3.68 x10^6/uL (3.50-5.40) Hemoglobin 11.6 g/dL (12.0-15.5) Hematocrit 35.0 % (36.0-47.0) Mean Corpuscular Volume 95 fL (79-100) Mean Corpuscular Hemoglobin 32 pg (25-35) Mean Corpuscular Hemoglobin Concent 33 g/dL (31-37) Red Cell Distribution Width 15.1 % (11.5-14.5) Platelet Count 202 x10^3/uL (140-400) Neutrophils (%) (Auto) 70 % (31-73) Lymphocytes (%) (Auto) 21 % (24-48) Monocytes (%) (Auto) 7 % (0-9) Eosinophils (%) (Auto) 2 % (0-3) Basophils (%) (Auto) 1 % (0-3) Neutrophils # (Auto) 6.4 x10^3/uL (1.8-7.7) Lymphocytes # (Auto) 1.9 x10^3/uL (1.0-4.8) Monocytes # (Auto) 0.7 x10^3/uL (0.0-1.1) Eosinophils # (Auto) 0.2 x10^3/uL (0.0-0.7) Basophils # (Auto) 0.0 x10^3/uL (0.0-0.2) Sodium Level 141 mmol/L (136-145) Potassium Level 3.8 mmol/L (3.5-5.1) Chloride Level 106 mmol/L (98-107) Carbon Dioxide Level 27 mmol/L (21-32) Anion Gap 8 (6-14) Blood Urea Nitrogen 24 mg/dL (7-20) Creatinine 0.9 mg/dL (0.6-1.0) Estimated GFR (Cockcroft-Gault) 63.4 Glucose Level 87 mg/dL (70-99) Calcium Level 8.3 mg/dL (8.5-10.1) Magnesium Level 1.9 mg/dL (1.8-2.4) Creatine Kinase 524 U/L (26-192) Triglycerides Level 77 mg/dL (0-150) Cholesterol Level 181 mg/dL (0-200) LDL Cholesterol, Calculated 90 mg/dL (0-100) VLDL Cholesterol, Calculated 15 mg/dL (0-40) Non-HDL Cholesterol Calculated 105 mg/dL (0-129) HDL Cholesterol 76 mg/dL (40-60) Cholesterol/HDL Ratio 2.4 Procalcitonin 0.13 ng/mL (0.00-0.10) Test 07/14/20 11:41 Glucose (Fingerstick) 77 mg/dL (70-99) Review of Systems Review of Systems: Suicidal ideation. Denies shortness of breath, denies fever, denies cough. Assessment and Plan Assessmemt and Plan Problems Medical Problems: (1) Altered mental status Status: Acute (2) Expressive aphasia Status: Acute Comment Review of Relevant I have reviewed the following items génesis (where applicable) has been applied. Medications: Current Medications Medications (Trade) Dose Ordered Sig/Kristen Route PRN Reason Start Time Stop Time Status Last Admin Dose Admin Aspirin (Aspirin Rectal Supp) 300 mg 1X ONCE DE 07/13/20 15:45 07/13/20 15:49 DC 07/13/20 16:01 Sodium Chloride 1,000 ml @ 1,000 mls/hr 1X ONCE IV 07/13/20 16:30 07/13/20 17:29 DC 07/13/20 16:15 Sodium Chloride 1,000 ml @ 1,000 mls/hr 1X ONCE IV 07/13/20 17:45 07/13/20 18:44 DC 07/13/20 17:47 Enoxaparin Sodium (Lovenox 40mg Syringe) 40 mg Q24H SQ 07/13/20 22:00 07/13/20 23:16 Atorvastatin Calcium (Lipitor) 10 mg HS PO 07/13/20 21:00 07/13/20 23:16 Levothyroxine Sodium (Synthroid) 88 mcg DAILY06 PO 07/14/20 06:00 07/14/20 06:08 Mirtazapine (Remeron) 15 mg QHS PO 07/13/20 22:00 07/13/20 23:16 Celecoxib (CeleBREX) 200 mg BID PO 07/13/20 22:00 07/13/20 23:16 Potassium Chloride/Dextrose/ Sod Cl 1,000 ml @ 80 mls/hr [id number] IV 07/13/20 22:00 07/14/20 10:29 DC 07/13/20 23:17 Justifications for Admission Other Justification CHALO HOLLIDAY MD Jul 14, 2020 14:08
[2020-07-14 15:48] VITALS: BP 131/69
[2020-07-14] MEDS: DULoxetine HCL 30 MG CAPSULE.DR PO SCH (15:50)
[2020-07-14] MEDS: PANTOPRAZOLE 40 MG TABLET.DR. PO SCH (15:52)
[2020-07-14] MEDS: CYANOCOBALAMIN (VITAMIN B-12) 1,000 MCG TABLET. PO SCH (15:52)
[2020-07-14] MEDS: CELECOXIB 100 MG CAPSULE. PO SCH ×2 (15:52→20:20)
[2020-07-14] MEDS: ASPIRIN CHEWABLE 81 MG TABLET. PO SCH (15:52)
[2020-07-14] MEDS: MULTIVITAMIN with MINERAL TABLET. PO SCH (15:53)
[2020-07-14] MEDS: FLUTICASONE 50MCG/NASAL SPRAY 16GM BOTTLE. NS SCH (15:56)
[2020-07-14] MEDS: IV NORMAL SALINE 1000ML BAG 1,000 ML IV SCH ×2 (18:30→18:37)
[2020-07-14 19:57] VITALS: BP 105/64
[2020-07-14] MEDS: MIRTAZAPINE 15 MG TABLET PO SCH (20:19)
[2020-07-14] MEDS: PRAMIPEXOLE 0.25 MG TABLET. PO SCH (20:19)
[2020-07-14] MEDS: ATORVASTATIN CALCIUM 10 MG TABLET. PO SCH (20:20)
[2020-07-14] MEDS: ENOXAPARIN 40 MG/0.4 ML SYRINGE. SQ SCH (20:20)
[2020-07-14 22:43] VITALS: BP 99/59
[2020-07-15 03:01] VITALS: BP_SYST 108; BP_SYST 114; BP_DIAS 66; BP_DIAS 72
[2020-07-15] MEDS: IV NORMAL SALINE 1000ML BAG 1,000 ML IV SCH ×3 (03:17→20:55)
[2020-07-15 05:03] LABS: BASO % 1 % (0-3); EOS # 0.2 x10^3/uL (0.0-0.7); EOS % 4 % (0-3); HEMOGLOBIN 11.1 g/dL (12.0-15.5); LYMPH # 1.7 x10^3/uL (1.0-4.8); LYMPH % 31 % (24-48); MEAN CORPUSCULAR HEMOGLOBIN 32 pg (25-35); MEAN CORPUSCULAR HGB CONC 34 g/dL (31-37); MEAN CORPUSCULAR VOLUME 94 fL (79-100); MONO # 0.4 x10^3/uL (0.0-1.1); MONO % 7 % (0-9); NEUT # 3.1 x10^3/uL (1.8-7.7); NEUT % 57 % (31-73); PLATELET COUNT 192 x10^3/uL (140-400); RED BLOOD COUNT 3.51 x10^6/uL (3.50-5.40); WHITE BLOOD COUNT 5.4 x10^3/uL (4.0-11.0)
[2020-07-15 05:08] LABS: CREATININE 0.8 mg/dL (0.6-1.0); GFR 72.7; POTASSIUM 3.7 mmol/L (3.5-5.1)
[2020-07-15] MEDS: LEVOTHYROXINE 88 MCG TABLET PO SCH (05:47)
--- NOTE | 2020-07-15 07:52 | PDOC ---
[employer] PROGRESS NOTE Date of Service DOS: DATE: 07/15/20 TIME: 07:48 Chief Complaint Chief Complaint A/P: Acute toxic encephalopathy - due to opioid and PCP use. Will give IVF Chronic opioids - have friends and family educated on narcan and given prescription by her prescribing physician given this is a second admission within a 3 month period with prior requiring vent chronic back pain Fibromyalgia Degenerative disk disease of lumbar vertebrae HLD Respiratory depression - down to 88% on room air Abnormal CXR - likely from atelectasis 2/2 opioid use, will monitor Morbid Obesity - will have ec teacher to see FEN - NPO, D5 1/2 NSS w/ 20meq KCL PPX - lovenox FULL CODE Dispo - inpatient for above History of Present Illness History of Present Illness Ms Arnett is a 60yo F w/ PMHx chronic back pain, fibromyalgia, morbid obesity and prior accidental opioid overdose in April 2020 who presents to [facility] emergency department on 07/12/2020 from [facility] for altered mental status per her son. At 1300 he heard some banging noises upstairs and checked on her approximately an hour later and found her on the floor next to her bed with slurred speech, unintelligible words and jerking tremors and unusual eye movements. She was last seen normal at 2215 on 07/12/2020. Seen bedside in ED she has an expressive aphasia, has been monitored with some bizarre movements, and has fine tremors in all 4 extremities, does withdraw from pain. Cycloplegic eye movement, she does not focus. Labs reveal WBC 11.3, Hb 13.7, platelets 214, INR 1, lactate 1.5, NA 140, K3.7, BUN 25, CR 1.1, glucose 83, CK 286, troponin 0. LFTs within normal limits. Sinus tachycardia at 104bpm, NO ST elevation, QRS 118ms, QT/QTc 344/453ms, incomplete RBBB Head CT with no acute abnormalities CT neck with no acute cervical spine fracture, but advanced degenerative disc disease greatest C4-5 through C6-7 and to lesser degree at C3-4 and C7-T1 with mild spinal stenosis at C6-7. CXR with mild interstitial thickening Code stroke was called, outside the window for tPA. MRI brain with no acute abnormality. After MRI results a UDS returned positive for Opioids and PCP. Admitted for further care. 07/15: Patient evaluated with family at bedside. Patient admits to intentionally trying to overdose on her home medications, and left a suicide note to her family members. Consultation was placed to psychiatry. 1:1 sitter Afebrile. She is shaky, feels like she is withdrawing from her pain medications. More clearheaded today. Notes that she is not interested in inpatient psych and would like to go home as soon as is feasible. She is very surprised by PCP positive UDS. Vitals/I&O Vitals/I&O: Vital Signs Date Time Temp Pulse Resp B/P (MAP) Pulse Ox O2 Delivery O2 Flow Rate FiO2 07/15/20 03:01 98.0 66 20 108/72 (84) 98 Room Air 98.0 I & O 07/14/20 07/14/20 07/15/20 15:00 23:00 07:00 Intake Total 240 ml Output Total 400 ml 600 ml 700 ml Balance -400 ml -360 ml -700 ml Physical Exam General: Alert, Oriented X3, No acute distress, Other (Obtunded) Heart: Regular rate, Normal S1, Normal S2 Lungs: Clear Abdomen: Normal bowel sounds, Soft, No tenderness, No hepatosplenomegaly, No masses Extremities: No clubbing, No cyanosis, No edema, Normal pulses, No tenderness/swelling Skin: No rashes, No breakdown, No significant lesion Labs Labs: Laboratory Tests Test 07/14/20 11:41 07/14/20 18:06 07/15/20 00:13 07/15/20 03:45 Glucose (Fingerstick) 77 mg/dL (70-99) 205 mg/dL (70-99) 95 mg/dL (70-99) White Blood Count 5.4 x10^3/uL (4.0-11.0) Red Blood Count 3.51 x10^6/uL (3.50-5.40) Hemoglobin 11.1 g/dL (12.0-15.5) Hematocrit 33.0 % (36.0-47.0) Mean Corpuscular Volume 94 fL (79-100) Mean Corpuscular Hemoglobin 32 pg (25-35) Mean Corpuscular Hemoglobin Concent 34 g/dL (31-37) Red Cell Distribution Width 15.0 % (11.5-14.5) Platelet Count 192 x10^3/uL (140-400) Neutrophils (%) (Auto) 57 % (31-73) Lymphocytes (%) (Auto) 31 % (24-48) Monocytes (%) (Auto) 7 % (0-9) Eosinophils (%) (Auto) 4 % (0-3) Basophils (%) (Auto) 1 % (0-3) Neutrophils # (Auto) 3.1 x10^3/uL (1.8-7.7) Lymphocytes # (Auto) 1.7 x10^3/uL (1.0-4.8) Monocytes # (Auto) 0.4 x10^3/uL (0.0-1.1) Eosinophils # (Auto) 0.2 x10^3/uL (0.0-0.7) Basophils # (Auto) 0.0 x10^3/uL (0.0-0.2) Sodium Level 144 mmol/L (136-145) Potassium Level 3.7 mmol/L (3.5-5.1) Chloride Level 109 mmol/L (98-107) Carbon Dioxide Level 31 mmol/L (21-32) Anion Gap 4 (6-14) Blood Urea Nitrogen 17 mg/dL (7-20) Creatinine 0.8 mg/dL (0.6-1.0) Estimated GFR (Cockcroft-Gault) 72.7 Glucose Level 98 mg/dL (70-99) Calcium Level 8.0 mg/dL (8.5-10.1) Test 07/15/20 06:06 Glucose (Fingerstick) 102 mg/dL (70-99) Assessment and Plan Assessmemt and Plan Problems Medical Problems: (1) Altered mental status Status: Acute (2) Expressive aphasia Status: Acute Comment Review of Relevant I have reviewed the following items génesis (where applicable) has been applied. Medications: Current Medications Medications (Trade) Dose Ordered Sig/Kristen Route PRN Reason Start Time Stop Time Status Last Admin Dose Admin Insulin Human Lispro (HumaLOG) 0-5 UNITS TIDWMEALS SQ 07/14/20 08:00 07/14/20 18:45 Aspirin (Aspirin Chewable) 81 mg [id number] PO 07/14/20 08:00 07/14/20 15:52 Duloxetine HCl (Cymbalta) 30 mg DAILY PO 07/14/20 09:00 07/14/20 15:50 Cyanocobalamin (Vitamin B-12) 5,000 mcg DAILY PO 07/14/20 09:00 07/14/20 15:52 Fluticasone Propionate (Flonase) 2 spray DAILY NS 07/14/20 09:00 07/14/20 15:56 Multivitamins (Thera M Plus) 1 tab DAILY PO 07/14/20 09:00 07/14/20 15:53 Sodium Chloride 1,000 ml @ 100 mls/hr Q10H IV 07/14/20 08:30 07/15/20 03:17 Pramipexole Dihydrochloride (miraPEX) 0.5 mg QHS PO 07/14/20 21:00 07/14/20 20:19 Justifications for Admission Other Justification JENI BERRY MD Jul 15, 2020 07:52
[2020-07-15 07:59] VITALS: BP 144/78
[2020-07-15] MEDS: INSULIN LISPRO 300 UNITS/3 ML VIAL. SQ SCH ×3 (08:00→17:00)
[2020-07-15] MEDS: ASPIRIN CHEWABLE 81 MG TABLET. PO SCH (08:39)
[2020-07-15] MEDS: DULoxetine HCL 30 MG CAPSULE.DR PO SCH (08:39)
[2020-07-15] MEDS: PANTOPRAZOLE 40 MG TABLET.DR. PO SCH (08:39)
[2020-07-15] MEDS: CYANOCOBALAMIN (VITAMIN B-12) 1,000 MCG TABLET. PO SCH (08:40)
[2020-07-15] MEDS: FLUTICASONE 50MCG/NASAL SPRAY 16GM BOTTLE. NS SCH (08:40)
[2020-07-15] MEDS: MULTIVITAMIN with MINERAL TABLET. PO SCH (08:40)
[2020-07-15] MEDS: CELECOXIB 100 MG CAPSULE. PO SCH ×2 (08:40→20:54)
[2020-07-15] MEDS: traMADol 50 MG TABLET PO PRN ×2 (10:56→17:49)
[2020-07-15 11:09] VITALS: BP 153/86
[2020-07-15 15:28] VITALS: BP 167/80
--- NOTE | 2020-07-15 16:35 | NUR ---
PATIENT INFORMED THIS COMPOSITE WORKER THAT SHE DID NOT WANT TO GO TO INPATIENT PSYCH HOSPITAL AT DISCHARGE,STATED "I HAVE BEEN TO ONE OF THOSE PLACES BEFORE AND I DIDN'T LIKE IT". NURSING [employer] MAINTENANCE CONSULTANT INFORMED.
[2020-07-15] MEDS ORDERED: ONDANSETRON ODT 4 MG TAB.RAPDIS. PO PRN (19:00)
[2020-07-15 19:43] VITALS: BP 143/83
[2020-07-15] MEDS: ENOXAPARIN 40 MG/0.4 ML SYRINGE. SQ SCH (20:54)
[2020-07-15] MEDS: ATORVASTATIN CALCIUM 10 MG TABLET. PO SCH (20:54)
[2020-07-15] MEDS: MIRTAZAPINE 15 MG TABLET PO SCH (20:54)
[2020-07-15] MEDS: PRAMIPEXOLE 0.25 MG TABLET. PO SCH (20:54)
[2020-07-15 23:21] VITALS: BP 138/77
[2020-07-16] MEDS: traMADol 50 MG TABLET PO PRN ×3 (00:53→15:06)
[2020-07-16 03:34] VITALS: BP 141/76
[2020-07-16] MEDS: LEVOTHYROXINE 88 MCG TABLET PO SCH (05:40)
[2020-07-16 06:09] LABS: CALCIUM 9.1 mg/dL (8.5-10.1); CREATININE 0.7 mg/dL (0.6-1.0); GFR 84.8
[2020-07-16 07:00] VITALS: BP 156/66
[2020-07-16] MEDS: INSULIN LISPRO 300 UNITS/3 ML VIAL. SQ SCH ×3 (08:00→17:00)
[2020-07-16] MEDS: CYANOCOBALAMIN (VITAMIN B-12) 1,000 MCG TABLET. PO SCH (09:15)
[2020-07-16] MEDS: DULoxetine HCL 30 MG CAPSULE.DR PO SCH (09:15)
[2020-07-16] MEDS: MULTIVITAMIN with MINERAL TABLET. PO SCH (09:15)
[2020-07-16] MEDS: ASPIRIN CHEWABLE 81 MG TABLET. PO SCH (09:16)
[2020-07-16] MEDS: CELECOXIB 100 MG CAPSULE. PO SCH ×2 (09:16→19:55)
[2020-07-16] MEDS: PANTOPRAZOLE 40 MG TABLET.DR. PO SCH (09:16)
[2020-07-16] MEDS: FLUTICASONE 50MCG/NASAL SPRAY 16GM BOTTLE. NS SCH (09:20)
--- NOTE | 2020-07-16 10:15 | PDOC ---
PROGRESS NOTES Date of Service: DATE: 07/16/20 TIME: 10:14 Chief Complaint Chief Complaint IMPRESSION Acute toxic encephalopathy - due to opioid and PCP use. Will give IVF Chronic opioids - have friends and family educated on narcan and given prescription by her prescribing physician given this is a second admission within a 3 month period with prior requiring vent chronic back pain Fibromyalgia Degenerative disk disease of lumbar vertebrae HLD Respiratory depression - down to 88% on room air Abnormal CXR - likely from atelectasis 2/2 opioid use, will monitor Morbid Obesity - will have distillery worker general to see MAJOR DEPRESSION WITH suicide gesture PLAN FEN - NPO, D5 1/2 NSS w/ 20meq KCL PPX - lovenox FULL CODE Dispo - inpatient for above PSYCH CONSULT sitter 38 min pt exam, chart review, > 50% of time spent with exam, chart review, pt care coordination History of Present Illness History of Present Illness Ms Arnett is a 60yo F w/ PMHx chronic back pain, fibromyalgia, morbid obesity and prior accidental opioid overdose in April 2020 who presents to [facility] emergency department on 07/12/[address] [facility] for altered mental status per her son. At 1300 he heard some banging noises upstairs and checked on her approximately an hour later and found her on the floor next to her bed with slurred speech, unintelligible words and jerking tremors and unusual eye movements. She was last seen normal at 2215 on 07/12/2020. Seen bedside in ED she has an expressive aphasia, has been monitored with some bizarre movements, and has fine tremors in all 4 extremities, does withdraw from pain. Cycloplegic eye movement, she does not focus. Labs reveal WBC 11.3, Hb 13.7, platelets 214, INR 1, lactate 1.5, NA 140, K3.7, BUN 25, CR 1.1, glucose 83, CK 286, troponin 0. LFTs within normal limits. Sinus tachycardia at 104bpm, NO ST elevation, QRS 118ms, QT/QTc 344/453ms, incomplete RBBB Head CT with no acute abnormalities CT neck with no acute cervical spine fracture, but advanced degenerative disc disease greatest C4-5 through C6-7 and to lesser degree at C3-4 and C7-T1 with mild spinal stenosis at C6-7. CXR with mild interstitial thickening Code stroke was called, outside the window for tPA. MRI brain with no acute abnormality. After MRI results a UDS returned positive for Opioids and PCP. Admitted for further care. 07/15: Patient evaluated with family at bedside. Patient admits to intentionally trying to overdose on her home medications, and left a suicide note to her family members. Consultation was placed to psychiatry. 1:1 sitter Afebrile. She is shaky, feels like she is withdrawing from her pain medications. More clearheaded today. Notes that she is not interested in inpatient psych and would like to go home as soon as is feasible. She is very surprised by PCP positive UDS. Vitals Vitals Vital Signs Date Time Temp Pulse Resp B/P (MAP) Pulse Ox O2 Delivery O2 Flow Rate FiO2 07/16/20 07:00 97.8 78 18 156/66 (96) 99 Room Air 97.8 Physical Exam General: Alert, Oriented X3, Cooperative, No acute distress, Other (MUCH MORE ALERT ) Heart: Regular rate, Normal S1, Normal S2 Lungs: Clear Abdomen: Normal bowel sounds, Soft, No tenderness, No hepatosplenomegaly, No masses Extremities: No clubbing, No cyanosis, No edema, Normal pulses, No tenderness/swelling Skin: No rashes, No breakdown, No significant lesion Labs LABS Laboratory Tests Test 07/15/20 11:13 07/15/20 16:47 07/15/20 20:11 07/16/20 04:10 Glucose (Fingerstick) 131 mg/dL (70-99) 110 mg/dL (70-99) 103 mg/dL (70-99) Sodium Level 144 mmol/L (136-145) Potassium Level 3.0 mmol/L (3.5-5.1) Chloride Level 106 mmol/L (98-107) Carbon Dioxide Level 27 mmol/L (21-32) Anion Gap 11 (6-14) Blood Urea Nitrogen 11 mg/dL (7-20) Creatinine 0.7 mg/dL (0.6-1.0) Estimated GFR (Cockcroft-Gault) 84.8 Glucose Level 80 mg/dL (70-99) Calcium Level 9.1 mg/dL (8.5-10.1) Test 07/16/20 07:25 Glucose (Fingerstick) 82 mg/dL (70-99) Assessment and Plan Assessmemt and Plan Problems Medical Problems: (1) Altered mental status Status: Acute (2) Expressive aphasia Status: Acute What Is a Power of Waiter/Waitress Formal? A power of ticket worker (POA) is a legal document giving one person (the agent or wtulvawz-ma-xkec) the power to act for another person (the principal). The agent can have broad legal authority or limited authority to make legal decisions about the principal's property, finances or medical care. The power of ticket worker is frequently used in the event of a principal's illness or disability, or when the principal can't be present to sign necessary legal documents for financial transactions. A power of ticket worker can end for a number of reasons, such as when the principal dies, the principal revokes it, a court invalidates it, the principal divorces their spouse, who happens to be the agent, or the agent can no longer carry out the outlined responsibilities. Conventional POAs lapse when the creator becomes incapacitated, but a durable POA remains in force to enable the agent to manage the creators affairs, and a springing POA comes into effect only if and when the creator of the POA becomes incapacitated. A medical or healthcare POA enables an agent to make medical decisions on behalf of an incapacitated person. Bridges Takeaways A power of ticket worker (POA) is a legal document giving one person, the agent or ftpvaddy-jf-fbec the power to act for another person, the principal. The agent can have broad legal authority or limited authority to make decisions about the principal's property, finances or medical care. The power of ticket worker is often used when a principal becomes ill or disabled, or when they can't be present to sign necessary legal documents for financial transactions. Understanding Power of Waiter/Waitress Formal A power of ticket worker should be considered when planning for long-term care. There are different types of POAs that fall under either a general power of ticket worker or limited power of ticket worker. A general power of ticket worker acts on behalf of the principal in any and all matters, as allowed by the state. The agent under a general POA agreement may be authorized to take care of issues such as handling bank accounts, signing checks, selling property and assets like stocks, f A limited power of ticket worker gives the agent the power to act on behalf of the principal in specific matters or events. For example, the limited POA may explicitly state that the agent is only allowed to manage the principal's intermediate accounts. A limited POA may also be limited to a specific period of time (e.g., if the principal will be out of the country for, say, two years). Most eric of ticket worker documents allow an agent to represent the principal in all property and financial matters as long as the principals mental state of mind is good. If a situation occurs where the principal becomes incapable of making decisions for him or herself, the POA agreement would automatically end. However, someone who wants the POA to remain in effect after the persons health deteriorates would need to sign a durable power of ticket worker (DPOA). Important:A person appointed as power of ticket worker is not necessarily an ticket worker. The person could just be a trusted family member, friend, or acquaintance. Understanding the Durable Power of Waiter/Waitress Formal (DPOA) The durable power of ticket worker (DPOA) remains in control of certain legal, property or financial matters specifically spelled out in the agreement, even after the principal becomes mentally incapacitated. While a DPOA can pay medical bills on behalf of the principal, the durable agent cannot make decisions related to the principal's health (e.g., taking the principal off life support is not up to a DPOA). The principal can sign a durable power of ticket worker for health care, or healthcare power of ticket worker (HCPA), if he wants an agent to have the power to make health-related decisions. This document also called a healthcare proxy, outlines the principals consent to give the agent POA privileges in the event of an unfortunate medical condition. The durable POA for healthcare is legally bound to oversee medical care decisions on behalf of the principal. Another type of DPOA is the durable power of ticket worker for finances, or simply a financial power of ticket worker. This document allows an agent to manage the business and financial affairs of the principal, such as signing checks, filing tax returns, mailing and depositing Social Security checks and managing investment accounts, in the event, the latter becomes unable to understand or make decisions. To the extent of what the agreement spells out as the agents responsibility, the agent has to carry out the principals wishes to the best of his ability. When the agent acts on behalf of the principal by making investment decisions through the information broker or medical decisions through the healthcare professional, both institutions would ask to see the DPOA. Although the DPOA for both medical and financial matters can be one document, it is good to have separate DPOA for healthcare and finances. Since the DPOA for healthcare will have the principal's personal medical information, it would be inappropriate for the information broker to have it, and the medical office technician dont need to know the financial status of the patient either. conditions for which a durable POA may become active are set up in a document called the springing power of ticket worker. The springing POA defines the kind of event or level of incapacitation that should occur before the DPOA springs into effect. A power of ticket worker can remain dormant until a negative health occurrence activates it to a DPOA. How Power of Waiter/Waitress Formal Works You can buy or download a power of ticket worker template. If you do, be sure it is for your state, as requirements differ. However, this document may be too important to leave to the chance that you got the correct form and handled it properly. A better way to start the process of establishing a power of ticket worker is by locating an ticket worker who specializes in family law in your state. If ticket worker's fees are more than you can afford, legal services offices staffed with credentialed attorneys exist in virtually every part of the [place]. Visit the [employer] website, which has a "Find Paper Grader" search function. Clients who qualify will receive pro hamilton (cost-free) assistance Many states require that the signature of the principal (the person who init iates the POA) be notarized. Some states also require that witnesses' signatures be notarized. The following provisos apply generally, nationwide, and everyone who needs to create a POA should be aware of them: There is no standard POA form for all states; state law and procedures vary All states accept some version of the durable power of ticket worker A few bridges eric cannot be delegated. These include the authority to do the following: Make, amend, or revoke a will Contract a marriage in most states, although a handful of states allow it Vote (but the guardian may request a ballot on behalf of the principal) While the details may differ, the following rules apply [place] [facility]: Put It in Writing While some regions of the country accept oral POA grants, verbal instruction is not a reliable substitute for getting each of the eric of ticket worker granted to your agent spelled out [id number] on paper. Written clarity helps to avoid arguments and confusion. Use the Proper Format Many variations of power of ticket worker forms exist. Some POAs are short-lived; others are meant to last until . Decide what eric you wish to she and prepare a POA specific to that desire. The POA must also satisfy the requirements of your state. To find a form that will be accepted by a court of law in the state in which you live, perform an internet search, check with an office-supply store or ask a local estate-planning professional to help you. The best option is to use an ticket worker. Identify the Parties The term for the person granting the POA is the "principal." The individual who receives the power of ticket worker is called either the "agent" or the "[id number]-ec-[id number]." Check whether your state requires that you use specific terminology. Delegate the Eric A POA can be as broad or as limited as the principal wishes. However, each of the eric granted must be clear, even if the principal grants the agent "general power of ticket worker." In other words, the principal cannot she sweeping authority such as, I delegate all things having to do with my life. Specify Durability In most states, a power of ticket worker terminates if the principal is incapacitated. If this happens, the only way an agent can keep his or her eric is if the POA was written with an indication that it is "durable," a designation that makes it last for the principal's lifetime unless the principal revokes it. Notarize the POA Many states require eric of ticket worker to be notarized. Even in states that don't, it is potentially much easier for the agent if a notarys seal and signature are on the document. Record It Not all eric of ticket worker must be recorded formally by the county in order to be legal. But recording is standard practice for many estate planners and individuals who want to create a record that the document exists. File It Some states require specific kinds of POAs to be filed with a court or government office before they can be made valid. For instance, [place] requires that any POA used to she grandparents guardianship over a child must be filed with the juvenile court. It also requires a POA that transfers real estate to be recorded by the [facility] in which the property is located. Choosing a Power of Waiter/Waitress Formal Like the property deed for your house or car, a POA grants immense ownership authority and responsibility. It is literally a matter of life and in the case of a medical POA. And you could find yourself facing financial privation or bankruptcy if you end up with a mishandled or abused durable POA. Therefore, you should choose your agent with the greatest of care to ensure your wishes are carried out to the greatest extent possible. It is critical to name a person who is both trustworthy and capable to serve as your agent. This person will act with the same legal authority you would have, so any mistakes made by your agent may be very difficult to correct. Even worse, depending on the extent of the eric you she, there may be dangerous potential for self-dealing. An agent may have access to your bank accounts, the power to make gifts and transfer your funds, and the ability to sell your property. Your agent can be any competent adult, including a professional such as an ticket worker, reinsurance accountant, or banker. But your agent may also be a family member such as a spouse, adult child or another relative. Naming a family member as your agent saves the fees a professional would charge, and may also keep confidential information about your finances and other private matters in the family." Naming Children as Power of Waiter/Waitress Formal Parents who create POAs very commonly choose adult children to serve as their agents. Compared to naming ones spouse as the agent, the relative youth of the child is an advantage when the purpose of the POA is to relieve an aging parent of the burden of managing the details of financial and investment affairs or provide management for an aging parents affairs should the parent become incapacitated. In these cases, a spouse named as the agent who is near the same age as the person creating the POA may come to suffer the same debilities that led the POAs creator to establish it, defeating its purpose. When the child is honest, capable, and respects the parents desires, this can be the best choice for a POA. When there is more than one child, parents may struggle with the decision of who to select for the role of the agent. This is not a decision to be taken lightly. Your agent named under your POA acts with your authority, so costly financial mistakes resulting from carelessness or lack of financial understanding may be impossible to fix. The same is true of acts that create interfamily conflict by favoring some members over others. Worst of all, when delivered into the wrong hands, a POA can create a veritable license to steal, giving your agent access to your bank accounts and the ability to spend your money and take many other wrongful actions. Children have different characters, skills, and circumstances, and boggs selection of children as agents, and of the eric given to them, can avert these dangers. The good news is that you can have multiple POAs naming separate agents and customize them for each kj skill set, temperament, and ability to act on your behalf. Consider these three bridges factors when choosing which child you want to give important eric to under a POA: 1.Trustworthiness: This is the single most important trait of any agent named under a POA. This includes not just honesty but also reliability in performing tasks that need regular attention, from managing an investment portfolio to paying bills, and diligence in acting according to your wishes. 2.Abilities of each child: Specific abilities of different children may make them best suited to take on particular roles in managing your financial affairs. You can use limited POAs to give different children defined and limited eric over different aspects of your finances. These may include the followin.Managing everyday expenses of the family 4.Receiving income from and paying expenses on real estate 5.Controlling a financial portfolio 6.Managing insurance and annuities 7.Running a Wayger business 8.Multiple agents: More than one agent can be named by a POA, either with the authority to act separately or required to act jointly. Having two children separately authorized to manage routine items can be a convenience if one becomes unavailable for some reason while requiring two to agree on major actions like selling a house can assure family agreement over major decisions. Tip:Say one child is a busy financial expert living in a distant city, while another works part-time and lives conveniently close by. You can have one POA that names the first to manage your investment portfolio and another that names the second to manage your routine daily expenses and pay monthly bills. But naming multiple agents can cause problems if disputes arise between them. For instance, if two children are required to act jointly in managing an investment account but disagree over how to do so, it may be effectively frozen. So when choosing two children to act jointly as agents under a POA, be sure they have not only the skills for the task but personalities to cooperate. Risks of Naming Children as Power of Waiter/Waitress Formal Mistakesand worse, acts of self-dealingcommitted by your agent can be extremely costly. This is especially so with a durable POA that gives broad control over your affairs during a time when you are incapacitated. You must be convinced that the agent will follow your instructions, has the ability to do so, and will pursue your wishes even over the objections of other family members if need be. Never name a child to be your agent as a matter of fairness, to avoid hurt feelings or to preserve family harmony, if you lack trust. The eric are far too important to be granted other than on the merits of trustworthiness and ability. Beware naming a child as your agent if: You experience difficulty, awkwardness, or resistance when explaining to the child the duties to be taken on as your agent under the POA The child may not be available to perform the duties, or not be reliable in doing so due to their own concerns or distractions The child has a history of problems with gambling or substance abuse The child has serious debts or has been irresponsible in managing his/her own finances and affairs The child is engaged in intra-family conflicts that may result is using the eric received under the POA to favor some family members over others Risks of Naming a POA Be aware of the dangers of theft and self-dealing created by a POA, even when your agent is your own child. To minimize the risk of such wrongdoing, in addition to the steps mentioned above, have your POA require your agent to report all actions periodically to an outside constitution party, such as the familys reinsurance accountant or ticket worker. In other words, trust but verify. A capable ticket worker can draft your POA to include these safeguards under your states laws. As family circumstances change, periodically review and update the POAs you have created. You can revoke a POA simply by writing a letter that clearly identifies it and states that you revoke it, and delivering the letter to your former agent. (Some states require such a letter to be notarized.) Its a good idea to also send copies to third parties with whom the agent may have acted on your behalf. Then create a new POA and deliver it to your new choice of agent. A power of ticket worker can provide you with both convenience and protection by givi ng a trusted individual the legal authority to act on your behalf and in your interests. Adult children who are both fully trustworthy and capable of accomplishing your wishes may make the best agent under your POA. But dont name a person the agent simply because he or she is your child. Be sure your agent is trustworthy and capable as a first requirement, whomever you name. Getting Your Parents' to Create a Power of Waiter/Waitress Formal If you are the child as opposed to the parent in this situation, you face a different set of obstacles. Parents often are reluctant to give others power over their affairs. Moreover, a POA applies to individuals, not couples, so the challenge is to convince each parent to create a POA. If you have a parent who is reluctant to do so, try the following ideas to persuade them. Warn of the dangers of not having POAs. If a parent becomes incapacitated and unable to manage his or her own affairs without a POA in place that enables a named agent to step in and do so, then nobody may have the legal right to do so. For instance, nobody may have the right to take SUZE distributions the parent needs for income or to borrow funds to pay medical bills or to deal with the IRS concerning the parents taxes. It then will be necessary to go to court to seek to be named as a conservator or guardian for the parent, a course that may prove costly and slowand could be contested, causing family conflicts. Suggest customized POAs for their needs. There are many different kinds of POAs, and a person can have more than one. While a general POA enables the agent to act with the authority of the POAs creator in all matters, a special POA can limit that authority to a specific subject, such as managing an investment account, or to a limited period of time, such as while the creator of the POA is traveling abroad. Convince your parents by crafting one or more POAs to meet a parents specific wishes. You can begin by suggesting a special POA to be used only to provide a convenience that the parent will valuesuch as one that enables you to prepare and file the parents tax return and manage the parents dealings with the IRS. A parent who benefits from one POA is more likely to then become open to using others. Appeal to Them Ask parents to create POAs for the sake of everyone in the familyincluding the children and grandchildrenwho may be harmed by the complications and costs that result if a parent is incapacitated without a durable POA in place to manage the parents affairs. Have Safeguards The creator of a POA may, and should, be concerned about the risk that the agent will abuse the eric received under it. Insure against this by having the POA require that the agent periodically report all actions taken to a trusted third constitution party whom family members agree upon, such as the [facility] policy adviser or reinsurance accountant. Or have them name two agents and require they agree on major transactions, such as the sale of a home. Join Them Persons of all ages gain valuable protection from having a durable POA, as one can become unexpectedly incapacitated at any stage of life. One way to encourage a reluctant parent to create a durable POA is to create one for yourself and ask your parents to join you by doing the same. Consult Trusted Advisors Trusted professional advisors, such as a policy adviser, reinsurance accountant, and doctor, can help persuade parents of the wisdom and necessity of adopting POAs. Obtaining POAs from your parents can provide valuable benefits to both them and the entire family. If they are reluctant to she broad eric at once, you may still be able to convince them to do so gradually. But dont delay, or there may be costly consequences. A person must be mentally competent to create a power of ticket worker. Once a parent loses the capability to manage his or her own affairs it is too late, and court proceedings likely will be necessary. Special Considerations There are many good reasons to make a power of ticket worker, as it ensures that someone will look after your financial affairs if you become incapacitated. You should choose a trusted family member, a proven friend, or a reputable and honest professional. Remember, however, that signing a power of ticket worker that grants broad authority to an agent is very much like signing a blank checkso make sure you choose wisely and understand the laws that apply to the document. 18 min review DPOA What Special Power of Waiter/Waitress Formal Means A special power of ticket worker is a legal document that authorizes one person to act on behalf of another under specified circumstances. more Financial Power of Waiter/Waitress Formal A financial power of ticket worker is a legal document that grants a trusted agent the authority to act on behalf of the principal in financial matters. more What Is Agency by Necessity? Agency by necessity is a type of relationship in which one constitution party can make essential decisions for another constitution party. more How Thsihmprw-Zm-Yxbk Work An tamduopn-ek-lkyx is a person who is authorized to represent someone else in business, financial, and private matters. more Estate Planning Estate planning is the preparation of tasks that serve to manage an individual's asset base in the event of their incapacitation or . more Executor Definition An executor is an individual appointed to administrate the estate of a person. The executor's main duty is to carry out the instructions and wishes of the . more Trust & Estate Planning Power of Waiter/Waitress Formal: When You Need One Finances With Children If Your Kid Is 18, You Need These Documents What Is A Living Will? A living will is legal document that specifies a person's wishes regarding medical treatment, specifically treatments that will prolong life. This may be used if you are unable to make medical decisions for yourself due to severe injury or a medical condition. A living will is typically only used in deathbed situations. They typically detail any Do Not Resuscitate orders from the constitution party creating the living will. It may also be used for people who wish to refuse dialysis or blood transfusions for personal or caodaism reasons. Comment Review of Relevant I have reviewed the following items génseis (where applicable) has been applied. Labs Laboratory Tests Test 07/14/20 11:41 07/14/20 18:06 07/15/20 00:13 07/15/20 03:45 Glucose (Fingerstick) 77 mg/dL (70-99) 205 mg/dL (70-99) 95 mg/dL (70-99) White Blood Count 5.4 x10^3/uL (4.0-11.0) Red Blood Count 3.51 x10^6/uL (3.50-5.40) Hemoglobin 11.1 g/dL (12.0-15.5) Hematocrit 33.0 % (36.0-47.0) Mean Corpuscular Volume 94 fL (79-100) Mean Corpuscular Hemoglobin 32 pg (25-35) Mean Corpuscular Hemoglobin Concent 34 g/dL (31-37) Red Cell Distribution Width 15.0 % (11.5-14.5) Platelet Count 192 x10^3/uL (140-400) Neutrophils (%) (Auto) 57 % (31-73) Lymphocytes (%) (Auto) 31 % (24-48) Monocytes (%) (Auto) 7 % (0-9) Eosinophils (%) (Auto) 4 % (0-3) Basophils (%) (Auto) 1 % (0-3) Neutrophils # (Auto) 3.1 x10^3/uL (1.8-7.7) Lymphocytes # (Auto) 1.7 x10^3/uL (1.0-4.8) Monocytes # (Auto) 0.4 x10^3/uL (0.0-1.1) Eosinophils # (Auto) 0.2 x10^3/uL (0.0-0.7) Basophils # (Auto) 0.0 x10^3/uL (0.0-0.2) Sodium Level 144 mmol/L (136-145) Potassium Level 3.7 mmol/L (3.5-5.1) Chloride Level 109 mmol/L (98-107) Carbon Dioxide Level 31 mmol/L (21-32) Anion Gap 4 (6-14) Blood Urea Nitrogen 17 mg/dL (7-20) Creatinine 0.8 mg/dL (0.6-1.0) Estimated GFR (Cockcroft-Gault) 72.7 Glucose Level 98 mg/dL (70-99) Calcium Level 8.0 mg/dL (8.5-10.1) Test 07/15/20 06:06 07/15/20 11:13 07/15/20 16:47 07/15/20 20:11 Glucose (Fingerstick) 102 mg/dL (70-99) 131 mg/dL (70-99) 110 mg/dL (70-99) 103 mg/dL (70-99) Test 07/16/20 04:10 07/16/20 07:25 Sodium Level 144 mmol/L (136-145) Potassium Level 3.0 mmol/L (3.5-5.1) Chloride Level 106 mmol/L (98-107) Carbon Dioxide Level 27 mmol/L (21-32) Anion Gap 11 (6-14) Blood Urea Nitrogen 11 mg/dL (7-20) Creatinine 0.7 mg/dL (0.6-1.0) Estimated GFR (Cockcroft-Gault) 84.8 Glucose Level 80 mg/dL (70-99) Calcium Level 9.1 mg/dL (8.5-10.1) Glucose (Fingerstick) 82 mg/dL (70-99) Laboratory Tests Test 07/15/20 11:13 07/15/20 16:47 07/15/20 20:11 07/16/20 04:10 Glucose (Fingerstick) 131 mg/dL (70-99) 110 mg/dL (70-99) 103 mg/dL (70-99) Sodium Level 144 mmol/L (136-145) Potassium Level 3.0 mmol/L (3.5-5.1) Chloride Level 106 mmol/L (98-107) Carbon Dioxide Level 27 mmol/L (21-32) Anion Gap 11 (6-14) Blood Urea Nitrogen 11 mg/dL (7-20) Creatinine 0.7 mg/dL (0.6-1.0) Estimated GFR (Cockcroft-Gault) 84.8 Glucose Level 80 mg/dL (70-99) Calcium Level 9.1 mg/dL (8.5-10.1) Test 07/16/20 07:25 Glucose (Fingerstick) 82 mg/dL (70-99) Microbiology 07/13/20 Urine Culture - Final, Complete Medications Current Medications Aspirin (Aspirin Rectal Supp) 300 mg 1X ONCE [place] Last administered on 07/13/20at 16:01; Start 07/13/20 at 15:45; Stop 07/13/20 at 15:49; Status DC Sodium Chloride 1,000 ml @ 1,000 mls/hr 1X ONCE IV Last administered on 07/13at 16:15; Start 07/13/20 at 16:30; Stop 07/13/20 at 17:29; Status DC Ondansetron HCl (Zofran) 4 mg PRN Q8HRS PRN IV NAUSEA/VOMITING; Start 07/13/20 at 17:45; Stop 07/13/20 at 22:04; Status DC Insulin Human Lispro (HumaLOG) 0-5 UNITS TIDWMEALS SQ Last administered on 07/14/20at 18:45; Start 07/14/20 at 08:00 Dextrose (Dextrose 50%-Water Syringe) 12.5 gm PRN Q15MIN PRN IV SEE COMMENTS; Start 07/13/20 at 17:45 Sodium Chloride 1,000 ml @ 1,000 mls/hr 1X ONCE IV Last administered on 07/13/20at 17:47; Start 07/13/20 at 17:45; Stop 07/13/20 at 18:44; Status DC Ondansetron HCl (Zofran) 4 mg PRN Q4HRS PRN IV NAUSEA/VOMITING; Start 07/13/20 a t 22:00 Enoxaparin Sodium (Lovenox 40mg Syringe) 40 mg Q24H SQ Last administered on 07/15/20at 20:54; Start 07/13/20 at 22:00 Acetaminophen (Tylenol) 650 mg PRN Q6HRS PRN PO MILD PAIN / TEMP > 100.3'F Last administered on 07/15/20at 03:16; Start 07/13/20 at 22:00 Albuterol Sulfate (Ventolin Neb Soln) 2.5 mg PRN Q4HRS PRN INH wheezing; Start 07/13/20 at 22:00 Aspirin (Aspirin Chewable) 81 mg DAILYWBKFT PO Last administered on 07/16/20 09:16; Start 07/14/20 at 08:00 Atorvastatin Calcium (Lipitor) 10 mg HS PO Last administered on 07/15/20 20:54; Start 07/13/20 at 21:00 Duloxetine HCl (Cymbalta) 30 mg DAILY PO Last administered on 07/16/20 09:15; Start 07/14/20 at 09:00 Levothyroxine Sodium (Synthroid) 88 mcg DAILY06 PO Last administered on 07/16/20 05:40; Start 07/14/20 at 06:00 Mirtazapine (Remeron) 15 mg QHS PO Last administered on 07/15/20 20:54; Start 07/13/20 at 22:00 Pantoprazole Sodium (Protonix) 40 mg DAILYAC PO Last administered on 07/16/20 09:16; Start 07/14/20 at 07:30 Celecoxib (CeleBREX) 200 mg BID PO Last administered on 07/16/20 09:16; Start 07/13/20 at 22:00 Cyanocobalamin (Vitamin B-12) 5,000 mcg DAILY PO Last administered on 07/16/20 09:15; Start 07/14/20 at 09:00 Fluticasone Propionate (Flonase) 2 spray DAILY NS Last administered on 07/16/20 09:20; Start 07/14/20 at 09:00 Multivitamins (Thera M Plus) 1 tab DAILY PO Last administered on 07/16/20 09:15; Start 07/14/20 at 09:00 Non-Formulary Medication (Ubidecarenone (Coq-10)) 200 mg DAILY PO ; Start 07/14/20 at 09:00; Status UNV Potassium Chloride/Dextrose/ Sod Cl 1,000 ml @ 80 mls/hr [id number] IV Last administered on 07/13/20 23:17; Start 07/13/20 at 22:00; Stop 07/14/20 at 10:29; Status DC Sodium Chloride 1,000 ml @ 100 mls/hr Q10H IV Last administered on 07/15/20 03:17; Start 07/14/20 at 08:30 Pramipexole Dihydrochloride (miraPEX) 0.5 mg QHS PO Last administered on 07/15/20at 20:54; Start 07/14/20 at 21:00 Tramadol HCl (Ultram) 50 mg PRN Q6HRS PRN PO MODERATE PAIN Last administered on 07/15/20at 17:49; Start 07/15/20 at 10:45 Tramadol HCl (Ultram) 100 mg PRN Q6HRS PRN PO SEVERE PAIN Last administered on 07/16/20at 09:16; Start 07/15/20 at 10:45 Ondansetron HCl (Zofran Odt) 4 mg PRN Q6HRS PRN PO NAUSEA/VOMITING; Start 07/15/20 at 19:00 Active Scripts Active Reported Proair Hfa Inhaler (Albuterol Sulfate) 8.5 Gm Hfa.aer.ad 2 Puff IH PRN Q4-6HRS PRN 21 Days Flonase Allergy Relief (Fluticasone Propionate) 9.9 Ml [place].susp 2 Sprays NS DAILY Valacyclovir (Valacyclovir Hcl) 1,000 Mg Tablet 1,000 Mg PO PRN PRN Valacyclovir (Valacyclovir Hcl) 1,000 Mg Tablet 1 Tab PO DAILY Children's Aspirin (Aspirin) 81 Mg Tab.chew 81 Mg PO DAILY Tramadol Hcl 50 Mg Tablet 50 Mg PO Q6HRS PRN Mirtazapine 15 Mg Tablet 1 Tab PO QHS Cymbalta (Duloxetine Hcl) 30 Mg Capsule.dr 1 Cap PO DAILY Atorvastatin Calcium 10 Mg Tablet 1 Tab PO DAILY Levothyroxine Sodium 88 Mcg Tablet 1 Tab PO DAILY Lyrica (Pregabalin) 100 Mg Capsule 3 Cap PO HS Lyrica (Pregabalin) 50 Mg Capsule 25 Mg PO AM ONLY Pantoprazole Sodium (Pantoprazole Sodium) 40 Mg Tablet.dr 40 Mg PO DAILYAC Cyclobenzaprine Hcl 10 Mg Tablet 1 Tab PO TID Mirapex (Pramipexole Di-Hcl) 0.25 Mg Tablet 0.5 Mg PO HS Celebrex (Celecoxib) 200 Mg Capsule 200 Mg PO BID 30 Days Coq-10 (Ubidecarenone) 100 Mg Capsule 200 Mg PO DAILY Vitamin B-12 (Cyanocobalamin (Vitamin B-12)) 5,000 Mcg Tab.rapdis 1 Tab PO DAILY 30 Days Centrum Silver Women Tablet (Multivits-Min/Iron/FA/Lutein) 1 Each Tablet 1 Each PO DAILY [antwon 40] Vitals/I & O Vital Sign - Last 24 Hours 07/15/20 07/15/20 07/15/20 07/15/20 10:56 11:09 12:00 15:28 Temp 98.3 98.3 98.3 98.3 Pulse 83 111 Resp 20 18 19 20 B/P (MAP) 153/86 (108) 167/80 (109) Pulse Ox 95 98 94 99 O2 Delivery Room Air Room Air Room Air Room Air 07/15/20 07/15/20 07/15/20 07/15/20 17:49 19:43 19:55 20:10 Temp 98.2 98.2 Pulse 102 Resp 18 B/P (MAP) 143/83 (103) Pulse Ox 94 97 94 O2 Delivery Room Air Room Air Room Air Room Air 07/15/20 07/16/20 07/16/20 07/16/20 23:21 00:09 00:53 02:49 Temp 97.9 97.9 Pulse 87 Resp 18 18 18 B/P (MAP) 138/77 (97) Pulse Ox 96 96 96 O2 Delivery Room Air Room Air Room Air Room Air 07/16/20 07/16/20 03:34 07:00 Temp 98.1 97.8 98.1 97.8 Pulse 95 78 Resp 18 18 B/P (MAP) 141/76 (97) 156/66 (96) Pulse Ox 98 99 O2 Delivery Room Air Room Air Intake and Output 07/15/20 07/15/20 07/16/20 15:00 23:00 07:00 Intake Total 675 ml 50 ml Output Total 400 ml 100 ml 150 ml Balance -400 ml 575 ml -100 ml Justicifation of Admission Dx: Justifications for Admission: Justification of Admission Dx: Yes Altered Mental Status: Altered Mental Status SAL ALVAREZ MD Jul 16, 2020 10:15
[2020-07-16] MEDS: IV NORMAL SALINE 1000ML BAG 1,000 ML IV SCH ×2 (10:30→19:53)
[2020-07-16] MEDS ORDERED: methylPREDNISolone ACETATE 40 MG/ML VIAL. IM ONE ×2 (10:45)
[2020-07-16] MEDS ORDERED: BUPIVACAINE MPF 0.25% 10 ML VIAL. IJ ONE (10:45)
[2020-07-16 10:52] VITALS: BP 142/64
[2020-07-16] MEDS ORDERED: PREG100C PO (13:05)
[2020-07-16 15:00] VITALS: BP 148/70
[2020-07-16] MEDS: CYCLOBENZAPRINE 10 MG TABLET. PO SCH ×2 (15:01→19:55)
[2020-07-16] MEDS: PREGABALIN 50 MG CAPSULE PO SCH ×2 (15:02→19:54)
--- NOTE | 2020-07-16 16:48 | PDOC1 ---
History & Psych Evaluation Date of Service: DOS: DATE: 07/16/20 TIME: 16:48 Source: Source: Caregiver, Chart review, Patient Identification: Identification She is a 60-year-old female with history of depression Chief Complaint: Chief Complaint Suicidal ideation, suicidal attempt, depression wrote a suicidal note History of Present Illness: HPI: She is a 60-year-old female with longstanding history of major depressive disorder admitted with worsening depression and suicidal attempt. Reportedly, she wrote a suicidal note. Upon interview, she appears cooperative and interactive, depressed looking. States, she was struggling with severe pain which she was not able to tolerate. States, consistent pain made her miserable and complicated her depression which she could not handle and took a handful of her tramadol. Though she states, it was for the spur of her movement, she wrote suicidal note to her children saying sorry to them. Depression is rated as moderate to severe, triggered by pain and characterizes as irritability, insomnia, no motivation, concentration deficit, and loss of interest in fun activities. In addition to that anxiety was also moderate. She denies history of bipolar mood disorder, reynaldo or hypomania. She denies history of auditory or visual hallucinations or psychotic break. Denies history of trauma or PTSD Past Psychiatric History: Past history of major depressive disorder, she was admitted in [place] in a psychiatric hospital in 2008 for suicidal attempt History of previous suicidal attempt in 2008 by overdose reportedly only 1 suicidal attempt Denies history of nonsuicidal self-injurious behavior Presently she is on Remeron 15 mg nightly, and Cymbalta 30 mg daily Past Medical History: Please see medical chart for details Family History: Mother with depression and anxiety Social History: She lives with her brother in [place]. Daughter lives in [place]. She has 2 sons and 1 daughter. Denies history of illicit substance use. Denies history of legal issues. Current Medications: Current Medications Current Medications Medications (Trade) Dose Ordered Sig/Kristen Start Time Stop Time Status Last Admin Dose Admin Acetaminophen (Tylenol) 650 mg PRN Q6HRS PRN 07/13/20 22:00 07/15/20 03:16 650 MG Albuterol Sulfate (Ventolin Neb Soln) 2.5 mg PRN Q4HRS PRN 07/13/20 22:00 Aspirin (Aspirin Chewable) 81 mg DAILYWBKFT 07/14/20 08:00 07/16/20 09:16 81 MG Aspirin (Aspirin Rectal Supp) 300 mg 1X ONCE 07/13/20 15:45 07/13/20 15:49 DC 07/13/20 16:01 300 MG Atorvastatin Calcium (Lipitor) 10 mg HS 07/13/20 21:00 07/15/20 20:54 10 MG Bupivacaine HCl (Sensorcaine-Mpf 0.25%) 10 ml 1X ONCE 07/16/20 10:45 07/16/20 10:46 DC 07/16/20 10:45 10 ML Celecoxib (CeleBREX) 200 mg BID 07/13/20 22:00 07/16/20 09:16 200 MG Cyanocobalamin (Vitamin B-12) 5,000 mcg DAILY 07/14/20 09:00 07/16/20 09:15 5,000 MCG Cyclobenzaprine HCl (Flexeril) 10 mg TID 07/16/20 14:00 07/16/20 15:01 10 MG Dextrose (Dextrose 50%-Water Syringe) 12.5 gm PRN Q15MIN PRN 07/13/20 17:45 Duloxetine HCl (Cymbalta) 30 mg DAILY 07/14/20 09:00 07/16/20 09:15 30 MG Enoxaparin Sodium (Lovenox 40mg Syringe) 40 mg Q24H 07/13/20 22:00 07/15/20 20:54 40 MG Fluticasone Propionate (Flonase) 2 spray DAILY 07/14/20 09:00 07/16/20 09:20 2 SPRAY Insulin Human Lispro (HumaLOG) 0-5 UNITS TIDWMEALS 07/14/20 08:00 07/14/20 18:45 3 UNITS Levothyroxine Sodium (Synthroid) 88 mcg DAILY06 07/14/20 06:00 07/16/20 05:40 88 MCG Methylprednisolone Acetate (DEPO-Medrol 40MG VIAL) 40 mg 1X ONCE 07/16/20 10:45 07/16/20 10:46 DC 07/16/20 10:45 40 MG Mirtazapine (Remeron) 15 mg QHS 07/13/20 22:00 07/15/20 20:54 15 MG Multivitamins (Thera M Plus) 1 tab DAILY 07/14/20 09:00 07/16/20 09:15 1 TAB Non-Formulary Medication (Ubidecarenone (Coq-10)) 200 mg DAILY 07/14/20 09:00 UNV Ondansetron HCl (Zofran Odt) 4 mg PRN Q6HRS PRN 07/15/20 19:00 Ondansetron HCl (Zofran) 4 mg PRN Q4HRS PRN 07/13/20 22:00 Pantoprazole Sodium (Protonix) 40 mg DAILYAC 07/14/20 07:30 07/16/20 09:16 40 MG Potassium Chloride/Dextrose/ Sod Cl 1,000 ml @ 80 mls/hr [id number] 07/13/20 22:00 07/14/20 10:29 DC 07/13/20 23:17 80 MLS/HR Pramipexole Dihydrochloride (miraPEX) 0.5 mg QHS 07/14/20 21:00 07/15/20 20:54 0.5 MG Pregabalin (Lyrica) 100 mg TID 07/16/20 14:00 07/16/20 15:02 100 MG Sodium Chloride 1,000 ml @ 100 mls/hr Q10H 07/14/20 08:30 07/15/20 03:17 100 MLS/HR Tramadol HCl (Ultram) 100 mg PRN Q6HRS PRN 07/15/20 10:45 07/16/20 15:06 100 MG Allergies: Allergies: Coded Allergies: Sulfa (Sulfonamide Antibiotics) (Verified Allergy, Intermediate, 01/31/20) aripiprazole (Verified Allergy, Intermediate, 05/22/20) desvenlafaxine (Verified Allergy, Intermediate, 05/22/20) varenicline (Verified Allergy, Intermediate, Unknown, 01/31/20) Mental Status Examination: Mental Status Examination female appears her stated age, fairly groomed fairly nourished Cooperative and interactive Alert and oriented Coherent, goal-directed Denies auditory or visual hallucinations Denies suicidal or homicidal thoughts No abnormal perceptions noted Mood is improving Affect is constricted Insight is fair Judgment is fair Impulse control is fair Concentration and attention is fine fair Recent and remote memory intact ROS: CONSTITUTIONAL: No fever or chills EYES: No recent changes SKIN: No rash or itching CARDIOVASCULAR: No chest pain, syncope, palpitations, or edema RESPIRATORY: No SOB or cough GASTROINTESTINAL: No nausea, vomiting or abdominal pain NEUROLOGICAL: No headaches or weakness ENDOCRINE: No cold or heat intolerance GENITOURINARY: No urgency or frequency of urination MUSCULOSKELETAL: No back pain or joint pain LYMPHATICS: No enlarged lymph nodes PSYCHIATRIC: positive for anxiety or depression Physical Exam: Refer to Physician's note. DIRECTOR OF MARKETING OPERATIONS: No focal deficit MSK: No EPS, TDK, or abnormal involuntary movements Vitals: Vitals Vital Signs Date Time Temp Pulse Resp B/P (MAP) Pulse Ox O2 Delivery O2 Flow Rate FiO2 07/16/20 16:09 Room Air 07/16/20 15:00 97.9 84 18 148/70 (96) 100 97.9 Labs: Labs Laboratory Tests Test 07/14/20 18:06 07/15/20 00:13 07/15/20 03:45 07/15/20 06:06 Glucose (Fingerstick) 205 mg/dL (70-99) 95 mg/dL (70-99) 102 mg/dL (70-99) White Blood Count 5.4 x10^3/uL (4.0-11.0) Red Blood Count 3.51 x10^6/uL (3.50-5.40) Hemoglobin 11.1 g/dL (12.0-15.5) Hematocrit 33.0 % (36.0-47.0) Mean Corpuscular Volume 94 fL (79-100) Mean Corpuscular Hemoglobin 32 pg (25-35) Mean Corpuscular Hemoglobin Concent 34 g/dL (31-37) Red Cell Distribution Width 15.0 % (11.5-14.5) Platelet Count 192 x10^3/uL (140-400) Neutrophils (%) (Auto) 57 % (31-73) Lymphocytes (%) (Auto) 31 % (24-48) Monocytes (%) (Auto) 7 % (0-9) Eosinophils (%) (Auto) 4 % (0-3) Basophils (%) (Auto) 1 % (0-3) Neutrophils # (Auto) 3.1 x10^3/uL (1.8-7.7) Lymphocytes # (Auto) 1.7 x10^3/uL (1.0-4.8) Monocytes # (Auto) 0.4 x10^3/uL (0.0-1.1) Eosinophils # (Auto) 0.2 x10^3/uL (0.0-0.7) Basophils # (Auto) 0.0 x10^3/uL (0.0-0.2) Sodium Level 144 mmol/L (136-145) Potassium Level 3.7 mmol/L (3.5-5.1) Chloride Level 109 mmol/L (98-107) Carbon Dioxide Level 31 mmol/L (21-32) Anion Gap 4 (6-14) Blood Urea Nitrogen 17 mg/dL (7-20) Creatinine 0.8 mg/dL (0.6-1.0) Estimated GFR (Cockcroft-Gault) 72.7 Glucose Level 98 mg/dL (70-99) Calcium Level 8.0 mg/dL (8.5-10.1) Test 07/15/20 11:13 07/15/20 16:47 07/15/20 20:11 07/16/20 04:10 Glucose (Fingerstick) 131 mg/dL (70-99) 110 mg/dL (70-99) 103 mg/dL (70-99) Sodium Level 144 mmol/L (136-145) Potassium Level 3.0 mmol/L (3.5-5.1) Chloride Level 106 mmol/L (98-107) Carbon Dioxide Level 27 mmol/L (21-32) Anion Gap 11 (6-14) Blood Urea Nitrogen 11 mg/dL (7-20) Creatinine 0.7 mg/dL (0.6-1.0) Estimated GFR (Cockcroft-Gault) 84.8 Glucose Level 80 mg/dL (70-99) Calcium Level 9.1 mg/dL (8.5-10.1) Test 07/16/20 07:25 07/16/20 11:24 Glucose (Fingerstick) 82 mg/dL (70-99) 110 mg/dL (70-99) Laboratory Tests Test 07/15/20 20:11 07/16/20 04:10 07/16/20 07:25 07/16/20 11:24 Glucose (Fingerstick) 103 mg/dL (70-99) 82 mg/dL (70-99) 110 mg/dL (70-99) Sodium Level 144 mmol/L (136-145) Potassium Level 3.0 mmol/L (3.5-5.1) Chloride Level 106 mmol/L (98-107) Carbon Dioxide Level 27 mmol/L (21-32) Anion Gap 11 (6-14) Blood Urea Nitrogen 11 mg/dL (7-20) Creatinine 0.7 mg/dL (0.6-1.0) Estimated GFR (Cockcroft-Gault) 84.8 Glucose Level 80 mg/dL (70-99) Calcium Level 9.1 mg/dL (8.5-10.1) Diagnosis: Diagnosis: 1. Suicidal attempt by overdose 2. Major depressive disorder, recurrent, severe without psychotic features Assessment: She is a female with longstanding history of major depressive disorder admitted with suicidal attempt and worsening depression in context of her major depressive disorder. Apparently, pain is the major precipitating factor for her impulsive suicidal attempt. However, her depression was not sufficiently under control prior to pain episodes. She has limited coping skills to manage her depression and impulsivity. She needs inpatient psychiatric admission for crisis stabilization.She is in agreement to increase dose of Cymbalta to 60 mg. Plan: Increase Cymbalta to 60 mg daily for depression. Continue Remeron as is Risks, benefits, alternatives of the treatment are discussed. She is in agreement with plan and voiced understanding. Adverse drug reactions of the medications prescribed are also discussed in detail. Psychoeducation provided. Supportive psychotherapy provided. Monitor closely for suicidality, and safety. Thank you for involving inpatient care JAKE DOMINGUEZ MD Jul 16, 2020 16:48
[2020-07-16 19:10] VITALS: BP 141/85
[2020-07-16] MEDS: MIRTAZAPINE 15 MG TABLET PO SCH (19:54)
[2020-07-16] MEDS: PRAMIPEXOLE 0.25 MG TABLET. PO SCH (19:55)
[2020-07-16] MEDS: ATORVASTATIN CALCIUM 10 MG TABLET. PO SCH (19:55)
--- NOTE | 2020-07-16 20:10 | CONS ---
DATE OF CONSULTATION: LOCATION: She is in room 510. ATTENDING PHYSICIAN: Dr. Che. REASON FOR CONSULTATION: The patient was seen at the request of Dr. Che for rehab evaluation. HISTORY OF PRESENT ILLNESS: This is a 60-year-old female patient who was admitted on 07/13/2020 with altered mental status. The patient with chronic lower back pain, fibromyalgia, morbid obesity, prior accidental opioid overdose in 04/2020, admitted through the Emergency Room on 07/12/2020 for altered mental status, per her son, around 1:00 p.m., he heard some banging noises upstairs and checked on her approximately an hour later and found her on the floor next to her bed with slurred speech, unintelligible words and getting tremors and unusual eye movements. She was last seen normal around 10:15 on the evening of 07/12/2020. She was noted with expressive aphasia. She was noted with bizarre and movements and fine tremors in all 4 extremities, does withdraw from pain, psychoplegic eye movements. She does not focus. CT of the cervical spine failed to reveal any acute abnormalities. It revealed advanced degenerative disk disease, greatest at C4-C5 and C6-C7 and to a lesser degree at C3-C4, C7-T1 with mild spinal stenosis at C6-C7. CT scan of the head was within normal limits. Chest x-ray, mild interstitial thickening. The patient had MRI scan of the brain, which failed to reveal any acute abnormalities. It revealed chronic small vessel ischemic changes. The patient is being treated with a diagnosis of overdose. The patient is being considered for transfer to psych unit as this is the second suicidal attempt or overdose attempt. The patient admits lumbar epidural steroid injection being done by Dr. Carolina helping her until recently. The last injection did not help much. The patient admits pain, mostly over the left lower back area, radiating to her left buttock. The patient denies any numbness or weakness in the extremities or any trouble with her bowel or bladder control. The patient is being followed by physical therapy. The patient lives with her son, one step to enter the house, 4 steps from the back. The patient is having significant pain, so she did not get up with the therapist yesterday. ALLERGIES: THE PATIENT IS KNOWN ALLERGIC TO SULFA, ARIPIPRAZOLE, DESVENLAFAXINE, VARENICLINE. PHYSICAL EXAMINATION: On physical examination today revealed a middle-aged female. She is alert, in no acute distress. The patient had painful limited movements of her lumbar spine, tenderness to palpation over left sacroiliac joint area and left trochanteric bursa. Straight leg raising test is negative bilaterally. She had crepitus on range of motion of both knee joints without any obvious knee joint effusion. She had 5/5 grade muscle strength in her extremities. Deep tendon reflexes are 1-2+ and symmetrical and she had equal perception of touch and pinprick sensation bilaterally, painful limited movements of her lumbar spine. Her skin is intact at this time. No significant lumbar paraspinal muscle spasm was noted at this time. ASSESSMENT: A middle-aged female with chronic lower back pain from degenerative disk disease of lumbar vertebrae without any clinical evidence of ongoing lumbar radiculopathy, left trochanteric bursitis, radiological evidence of degenerative disk disease and degenerative joint disease of cervical vertebrae, also history of fibromyalgia, degenerative joint disease of both knees. RECOMMENDATIONS: At her request, I have injected painful left sacroiliac joint area under aseptic skin technique after skin preparation using alcohol swab with 2 mL of 0.25% Marcaine solution mixed with 1 mL of Depo-Medrol 40 mg per 1 mL solution after skin preparation using alcohol swab and she tolerated the procedure satisfactorily without any side effects. To get her up as tolerated, to try small abdominal binder as lumbar corset, home when medically stable with outpatient followup. Dr. Che, I appreciate asking me to participate in the care of this interesting patient. I will be glad to follow her with you as needed for rehabilitation. RODRICK VAZQUEZ MD DR: NELLY/yeni JOB#: [id number] / [id number] HELENA
[2020-07-16] MEDS ORDERED: PREGABALIN 75 MG CAPSULE PO SCH (21:00)
[2020-07-16 23:11] VITALS: BP 133/76
[2020-07-16] MEDS: ENOXAPARIN 40 MG/0.4 ML SYRINGE. SQ SCH (23:30)
[2020-07-17 03:00] VITALS: BP 123/65
[2020-07-17] MEDS: traMADol 50 MG TABLET PO PRN ×3 (03:41→18:19)
[2020-07-17] MEDS: IV NORMAL SALINE 1000ML BAG 1,000 ML IV SCH ×2 (06:30→16:30)
[2020-07-17] MEDS: PANTOPRAZOLE 40 MG TABLET.DR. PO SCH (06:35)
[2020-07-17] MEDS: LEVOTHYROXINE 88 MCG TABLET PO SCH (06:35)
[2020-07-17 07:00] VITALS: BP 134/86
[2020-07-17 07:31] LABS: CALCIUM 8.8 mg/dL (8.5-10.1); CREATININE 0.6 mg/dL (0.6-1.0); GFR 101.3; POTASSIUM 3.2 mmol/L (3.5-5.1)
[2020-07-17] MEDS: INSULIN LISPRO 300 UNITS/3 ML VIAL. SQ SCH ×3 (08:00→17:00)
--- NOTE | 2020-07-17 08:51 | PDOC ---
PROGRESS NOTES Date of Service DATE: 07/17/20 TIME: 08:49 Subjective Subjective She feels better with her low back pain after left sacroiliac joint injection. Objective Objective Vital Signs Date Time Temp Pulse Resp B/P (MAP) Pulse Ox O2 Delivery O2 Flow Rate FiO2 07/17/20 07:47 94 Room Air 07/17/20 07:00 98.7 77 18 134/86 (102) 98.7 Intake and Output 07/17/20 07:00 Intake Total 1700 ml Balance 1700 ml Intake Oral 1700 ml # Voids 11 # Bowel Movements 1 Physical Exam Physical Exam She is supine in bed,alert,comfortable and she is getting up and walking with roller walker. Assessment Assessment Problems Medical Problems: (1) Altered mental status Status: Acute (2) Expressive aphasia Status: Acute Plan Plan of Care She agrees to go to psych unit. Comment Review of Relevant I have reviewed the following items génesis (where applicable) has been applied. Labs Laboratory Tests Test 07/15/20 11:13 07/15/20 16:47 07/15/20 20:11 07/16/20 04:10 Glucose (Fingerstick) 131 mg/dL (70-99) 110 mg/dL (70-99) 103 mg/dL (70-99) Sodium Level 144 mmol/L (136-145) Potassium Level 3.0 mmol/L (3.5-5.1) Chloride Level 106 mmol/L (98-107) Carbon Dioxide Level 27 mmol/L (21-32) Anion Gap 11 (6-14) Blood Urea Nitrogen 11 mg/dL (7-20) Creatinine 0.7 mg/dL (0.6-1.0) Estimated GFR (Cockcroft-Gault) 84.8 Glucose Level 80 mg/dL (70-99) Calcium Level 9.1 mg/dL (8.5-10.1) Test 07/16/20 07:25 07/16/20 11:24 07/16/20 17:06 07/16/20 22:17 Glucose (Fingerstick) 82 mg/dL (70-99) 110 mg/dL (70-99) 98 mg/dL (70-99) 100 mg/dL (70-99) Test 07/17/20 06:05 07/17/20 07:04 Sodium Level 144 mmol/L (136-145) Potassium Level 3.2 mmol/L (3.5-5.1) Chloride Level 106 mmol/L (98-107) Carbon Dioxide Level 28 mmol/L (21-32) Anion Gap 10 (6-14) Blood Urea Nitrogen 13 mg/dL (7-20) Creatinine 0.6 mg/dL (0.6-1.0) Estimated GFR (Cockcroft-Gault) 101.3 Glucose Level 126 mg/dL (70-99) Calcium Level 8.8 mg/dL (8.5-10.1) Glucose (Fingerstick) 118 mg/dL (70-99) Laboratory Tests Test 07/16/20 11:24 07/16/20 17:06 07/16/20 22:17 07/17/20 06:05 Glucose (Fingerstick) 110 mg/dL (70-99) 98 mg/dL (70-99) 100 mg/dL (70-99) Sodium Level 144 mmol/L (136-145) Potassium Level 3.2 mmol/L (3.5-5.1) Chloride Level 106 mmol/L (98-107) Carbon Dioxide Level 28 mmol/L (21-32) Anion Gap 10 (6-14) Blood Urea Nitrogen 13 mg/dL (7-20) Creatinine 0.6 mg/dL (0.6-1.0) Estimated GFR (Cockcroft-Gault) 101.3 Glucose Level 126 mg/dL (70-99) Calcium Level 8.8 mg/dL (8.5-10.1) Test 07/17/20 07:04 Glucose (Fingerstick) 118 mg/dL (70-99) Microbiology 07/13/20 Urine Culture - Final, Complete Medications Current Medications Aspirin (Aspirin Rectal Supp) 300 mg 1X ONCE WI Last administered on 07/13/20at 16:01; Start 07/13/20 at 15:45; Stop 07/13/20 at 15:49; Status DC Sodium Chloride 1,000 ml @ 1,000 mls/hr 1X ONCE IV Last administered on 07/13/20at 16:15; Start 07/13/20 at 16:30; Stop 07/13/20 at 17:29; Status DC Ondansetron HCl (Zofran) 4 mg PRN Q8HRS PRN IV NAUSEA/VOMITING; Start 07/13/20 at 17:45; Stop 07/13/20 at 22:04; Status DC Insulin Human Lispro (HumaLOG) 0-5 UNITS TIDWMEALS SQ Last administered on 07/14/20at 18:45; Start 07/14/20 at 08:00 Dextrose (Dextrose 50%-Water Syringe) 12.5 gm PRN Q15MIN PRN IV SEE COMMENTS; Start 07/13/20 at 17:45 Sodium Chloride 1,000 ml @ 1,000 mls/hr 1X ONCE IV Last administered on 07/13/20at 17:47; Start 07/13/20 at 17:45; Stop 07/13/20 at 18:44; Status DC Ondansetron HCl (Zofran) 4 mg PRN Q4HRS PRN IV NAUSEA/VOMITING; Start 07/13/20 at 22:00 Enoxaparin Sodium (Lovenox 40mg Syringe) 40 mg Q24H SQ Last administered on 07/16/20at 23:30; Start 07/13/20 at 22:00 Acetaminophen (Tylenol) 650 mg PRN Q6HRS PRN PO MILD PAIN / TEMP > 100.3'F Last administered on 07/15/20at 03:16; Start 07/13/20 at 22:00 Albuterol Sulfate (Ventolin Neb Soln) 2.5 mg PRN Q4HRS PRN INH wheezing; Start 07/13/20 at 22:00 Aspirin (Aspirin Chewable) 81 mg DAILYWBKFT PO Last administered on 07/16/20at 09:16; Start 07/14/20 at 08:00 Atorvastatin Calcium (Lipitor) 10 mg HS PO Last administered on 07/16/20at 19:55; Start 07/13/20 at 21:00 Duloxetine HCl (Cymbalta) 30 mg DAILY PO Last administered on 07/16/20 09:15; Start 07/14/20 at 09:00; Stop 07/16/20 at 22:23; Status DC Levothyroxine Sodium (Synthroid) 88 mcg DAILY06 PO Last administered on 07/17/20at 06:35; Start 07/14/20 at 06:00 Mirtazapine (Remeron) 15 mg QHS PO Last administered on 07/16/20at 19:54; Start 07/13/20 at 22:00 Pantoprazole Sodium (Protonix) 40 mg DAILYAC PO Last administered on 07/17/20 06:35; Start 07/14/20 at 07:30 Celecoxib (CeleBREX) 200 mg BID PO Last administered on 07/16/20 19:55; Start 07/13/20 at 22:00 Cyanocobalamin (Vitamin B-12) 5,000 mcg DAILY PO Last administered on 07/16/20 09:15; Start 07/14/20 at 09:00 Fluticasone Propionate (Flonase) 2 spray DAILY NS Last administered on 07/16/20 09:20; Start 07/14/20 at 09:00 Multivitamins (Thera M Plus) 1 tab DAILY PO Last administered on 07/16/20 09:15; Start 07/14/20 at 09:00 Non-Formulary Medication (Ubidecarenone (Coq-10)) 200 mg DAILY PO ; Start 07/14/20 at 09:00; Status UNV Potassium Chloride/Dextrose/ Sod Cl 1,000 ml @ 80 mls/hr [id number] IV Last administered on 07/13/20 23:17; Start 07/13/20 at 22:00; Stop 07/14/20 at 10:29; Status DC Sodium Chloride 1,000 ml @ 100 mls/hr Q10H IV Last administered on 07/15/20at 03:17; Start 07/14/20 at 08:30 Pramipexole Dihydrochloride (miraPEX) 0.5 mg QHS PO Last administered on 07/16/20at 19:55; Start 07/14/20 at 21:00 Tramadol HCl (Ultram) 50 mg PRN Q6HRS PRN PO MODERATE PAIN Last administered on 07/15/20 17:49; Start 07/15/20 at 10:45 Tramadol HCl (Ultram) 100 mg PRN Q6HRS PRN PO SEVERE PAIN Last administered on 07/17/20at 03:41; Start 07/15/20 at 10:45 Ondansetron HCl (Zofran Odt) 4 mg PRN Q6HRS PRN PO NAUSEA/VOMITING; Start 07/15/20 at 19:00 Methylprednisolone Acetate (DEPO-Medrol 40MG VIAL) 40 mg 1X ONCE IM Last administered on 07/16/20at 10:45; Start 07/16/20 at 10:45; Stop 07/16/20 at 10:46; Status DC Methylprednisolone Acetate (DEPO-Medrol 40MG VIAL) 40 mg 1X ONCE IM Last administered on 07/16/20at 10:45; Start 07/16/20 at 10:45; Stop 07/16/20 at 10:46; Status DC Bupivacaine HCl (Sensorcaine-Mpf 0.25%) 10 ml 1X ONCE IJ Last administered on 07/16/20at 10:45; Start 07/16/20 at 10:45; Stop 07/16/20 at 10:46; Status DC Cyclobenzaprine HCl (Flexeril) 10 mg TID PO Last administered on 07/16/20at 19:55; Start 07/16/20 at 14:00 Pregabalin (Lyrica) 25 mg DAILY PO ; Start 07/17/20 at 09:00; Stop 07/17/20 at 08:38; Status DC Pregabalin (Lyrica) 300 mg QHS PO ; Start 07/16/20 at 21:00; Status Cancel Pregabalin (Lyrica) 100 mg TID PO Last administered on 07/16/20at 19:54; Start 07/16/20 at 14:00 Duloxetine HCl (Cymbalta) 60 mg DAILY PO ; Start 07/17/20 at 09:00 Pregabalin (Lyrica) 25 mg DAILY PO ; Start 07/17/20 at 09:00 Active Scripts Active Reported Lyrica (Pregabalin) 100 Mg Capsule 1 Cap PO TID Proair Hfa Inhaler (Albuterol Sulfate) 8.5 Gm Hfa.aer.ad 2 Puff IH PRN Q4-6HRS PRN 21 Days Flonase Allergy Relief (Fluticasone Propionate) 9.9 Ml [place].susp 2 Sprays NS DAILY Valacyclovir (Valacyclovir Hcl) 1,000 Mg Tablet 1,000 Mg PO PRN PRN Valacyclovir (Valacyclovir Hcl) 1,000 Mg Tablet 1 Tab PO DAILY Children's Aspirin (Aspirin) 81 Mg Tab.chew 81 Mg PO DAILY Tramadol Hcl 50 Mg Tablet 50 Mg PO Q6HRS PRN Mirtazapine 15 Mg Tablet 1 Tab PO QHS Cymbalta (Duloxetine Hcl) 30 Mg Capsule.dr 1 Cap PO DAILY Atorvastatin Calcium 10 Mg Tablet 1 Tab PO DAILY Levothyroxine Sodium 88 Mcg Tablet 1 Tab PO DAILY Lyrica (Pregabalin) 50 Mg Capsule 25 Mg PO AM ONLY Pantoprazole Sodium (Pantoprazole Sodium) 40 Mg Tablet.dr 40 Mg PO DAILYAC Cyclobenzaprine Hcl 10 Mg Tablet 1 Tab PO TID Mirapex (Pramipexole Di-Hcl) 0.25 Mg Tablet 0.5 Mg PO HS Celebrex (Celecoxib) 200 Mg Capsule 200 Mg PO BID 30 Days Coq-10 (Ubidecarenone) 100 Mg Capsule 200 Mg PO DAILY Vitamin B-12 (Cyanocobalamin (Vitamin B-12)) 5,000 Mcg Tab.rapdis 1 Tab PO DAILY 30 Days Centrum Silver Women Tablet (Multivits-Min/Iron/FA/Lutein) 1 Each Tablet 1 Each PO DAILY [antwon 40] Vitals/I & O Vital Sign - Last 24 Hours 07/16/20 07/16/20 07/16/20 07/16/20 10:52 15:00 16:09 19:10 Temp 97.8 97.9 98.7 97.8 97.9 98.7 Pulse 80 84 80 Resp 18 18 20 B/P (MAP) 142/64 (90) 148/70 (96) 141/85 (103) Pulse Ox 99 100 96 O2 Delivery Room Air Room Air Room Air Room Air 07/16/20 07/16/20 07/17/20 07/17/20 19:50 23:11 03:00 03:41 Temp 98.4 97.7 98.4 97.7 Pulse 89 74 Resp 20 20 17 B/P (MAP) 133/76 (95) 123/65 (84) Pulse Ox 96 95 O2 Delivery Room Air Room Air Room Air 07/17/20 07/17/20 07/17/20 04:41 07:00 07:47 Temp 98.7 98.7 Pulse 77 Resp 18 18 B/P (MAP) 134/86 (102) Pulse Ox 95 96 94 O2 Delivery Room Air Room Air Room Air Intake and Output 07/16/20 07/16/20 07/17/20 15:00 23:00 07:00 Intake Total 600 ml 600 ml 500 ml Balance 600 ml 600 ml 500 ml Justifications for Admission Other Justification RODRICK VAZQUEZ MD Jul 17, 2020 08:50
[2020-07-17] MEDS ORDERED: PREGABALIN 25 MG CAPSULE PO SCH (09:00)
[2020-07-17] MEDS ORDERED: DULoxetine HCL 30 MG CAPSULE.DR PO SCH (09:00)
[2020-07-17] MEDS ORDERED: PREGABALIN 50 MG CAPSULE PO SCH (09:00)
[2020-07-17] MEDS: FLUTICASONE 50MCG/NASAL SPRAY 16GM BOTTLE. NS SCH (10:33)
[2020-07-17] MEDS: ASPIRIN CHEWABLE 81 MG TABLET. PO SCH (10:33)
[2020-07-17] MEDS: CELECOXIB 100 MG CAPSULE. PO SCH (10:34)
[2020-07-17] MEDS: CYCLOBENZAPRINE 10 MG TABLET. PO SCH ×2 (10:34→15:31)
[2020-07-17] MEDS: MULTIVITAMIN with MINERAL TABLET. PO SCH (10:34)
[2020-07-17] MEDS: CYANOCOBALAMIN (VITAMIN B-12) 1,000 MCG TABLET. PO SCH (10:34)
[2020-07-17] MEDS: PREGABALIN 50 MG CAPSULE PO SCH ×2 (10:35→15:32)
[2020-07-17 10:48] VITALS: BP 119/73
--- NOTE | 2020-07-17 11:53 | PDOC ---
PROGRESS NOTES Date of Service DATE: 07/17/20 TIME: 11:51 Assessment Problems Medical Problems: (1) Altered mental status Status: Acute (2) Expressive aphasia Status: Acute Encephalopathy, resolved, opioid overdose, no stroke on MRI brain Plan Referral to inpatient psychiatry, no additional neurological studies needed Neurology signs off Subjective No complaints, admits to drug overdose Objective Vital Signs Date Time Temp Pulse Resp B/P (MAP) Pulse Ox O2 Delivery O2 Flow Rate FiO2 07/17/20 10:48 98.4 84 18 119/73 (88) 95 Room Air 98.4 Intake and Output 07/17/20 07:00 Intake Total 1700 ml Balance 1700 ml Intake Oral 1700 ml # Voids 11 # Bowel Movements 1 PHYSICAL EXAM Alert. Oriented to time, place and person. PERRL. EOMI. CN: no focal findings. Muscle tone: normal. Muscle strength: 5/5 DTR: 2+ Plantar reflex: flexor Gait: not examined in bed. Sensory exam: no abnormal findings. No cerebellar signs elicited. Review of Relevant I have reviewed the following items génesis (where applicable) has been applied. Labs Laboratory Tests Test 07/15/20 16:47 07/15/20 20:11 07/16/20 04:10 07/16/20 07:25 Glucose (Fingerstick) 110 mg/dL (70-99) 103 mg/dL (70-99) 82 mg/dL (70-99) Sodium Level 144 mmol/L (136-145) Potassium Level 3.0 mmol/L (3.5-5.1) Chloride Level 106 mmol/L (98-107) Carbon Dioxide Level 27 mmol/L (21-32) Anion Gap 11 (6-14) Blood Urea Nitrogen 11 mg/dL (7-20) Creatinine 0.7 mg/dL (0.6-1.0) Estimated GFR (Cockcroft-Gault) 84.8 Glucose Level 80 mg/dL (70-99) Calcium Level 9.1 mg/dL (8.5-10.1) Test 07/16/20 11:24 07/16/20 17:06 07/16/20 22:17 07/17/20 06:05 Glucose (Fingerstick) 110 mg/dL (70-99) 98 mg/dL (70-99) 100 mg/dL (70-99) Sodium Level 144 mmol/L (136-145) Potassium Level 3.2 mmol/L (3.5-5.1) Chloride Level 106 mmol/L (98-107) Carbon Dioxide Level 28 mmol/L (21-32) Anion Gap 10 (6-14) Blood Urea Nitrogen 13 mg/dL (7-20) Creatinine 0.6 mg/dL (0.6-1.0) Estimated GFR (Cockcroft-Gault) 101.3 Glucose Level 126 mg/dL (70-99) Calcium Level 8.8 mg/dL (8.5-10.1) Test 07/17/20 07:04 07/17/20 11:42 Glucose (Fingerstick) 118 mg/dL (70-99) 127 mg/dL (70-99) Laboratory Tests Test 07/16/20 17:06 07/16/20 22:17 07/17/20 06:05 07/17/20 07:04 Glucose (Fingerstick) 98 mg/dL (70-99) 100 mg/dL (70-99) 118 mg/dL (70-99) Sodium Level 144 mmol/L (136-145) Potassium Level 3.2 mmol/L (3.5-5.1) Chloride Level 106 mmol/L (98-107) Carbon Dioxide Level 28 mmol/L (21-32) Anion Gap 10 (6-14) Blood Urea Nitrogen 13 mg/dL (7-20) Creatinine 0.6 mg/dL (0.6-1.0) Estimated GFR (Cockcroft-Gault) 101.3 Glucose Level 126 mg/dL (70-99) Calcium Level 8.8 mg/dL (8.5-10.1) Test 07/17/20 11:42 Glucose (Fingerstick) 127 mg/dL (70-99) Microbiology 07/13/20 Urine Culture - Final, Complete Medications Current Medications Aspirin (Aspirin Rectal Supp) 300 mg 1X ONCE [place] Last administered on 07/13/20at 16:01; Start 07/13/20 at 15:45; Stop 07/13/20 at 15:49; Status DC Sodium Chloride 1,000 ml @ 1,000 mls/hr 1X ONCE IV Last administered on 07/13/20at 16:15; Start 07/13/20 at 16:30; Stop 07/13/20 at 17:29; Status DC Ondansetron HCl (Zofran) 4 mg PRN Q8HRS PRN IV NAUSEA/VOMITING; Start 07/13/20 at 17:45; Stop 07/13/20 at 22:04; Status DC Insulin Human Lispro (HumaLOG) 0-5 UNITS TIDWMEALS SQ Last administered on 07/14/20at 18:45; Start 07/14/20 at 08:00 Dextrose (Dextrose 50%-Water Syringe) 12.5 gm PRN Q15MIN PRN IV SEE COMMENTS; Start 07/13/20 at 17:45 Sodium Chloride 1,000 ml @ 1,000 mls/hr 1X ONCE IV Last administered on 07/13/20at 17:47; Start 07/13/20 at 17:45; Stop 07/13/20 at 18:44; Status DC Ondansetron HCl (Zofran) 4 mg PRN Q4HRS PRN IV NAUSEA/VOMITING; Start 07/13/20 at 22:00 Enoxaparin Sodium (Lovenox 40mg Syringe) 40 mg Q24H SQ Last administered on 07/16/20at 23:30; Start 07/13/20 at 22:00 Acetaminophen (Tylenol) 650 mg PRN Q6HRS PRN PO MILD PAIN / TEMP > 100.3'F Last administered on 07/15/20at 03:16; Start 07/13/20 at 22:00 Albuterol Sulfate (Ventolin Neb Soln) 2.5 mg PRN Q4HRS PRN INH wheezing; Start 07/13/20 at 22:00 Aspirin (Aspirin Chewable) 81 mg DAILYWBKFT PO Last administered on 07/17/20at 10:33; Start 07/14/20 at 08:00 Atorvastatin Calcium (Lipitor) 10 mg HS PO Last administered on 07/16/20 19:55; Start 07/13/20 at 21:00 Duloxetine HCl (Cymbalta) 30 mg DAILY PO Last administered on 07/16/20at 09:15; Start 07/14/20 at 09:00; Stop 07/16/20 at 22:23; Status DC Levothyroxine Sodium (Synthroid) 88 mcg DAILY06 PO Last administered on 07/17/20at 06:35; Start 07/14/20 at 06:00 Mirtazapine (Remeron) 15 mg QHS PO Last administered on 07/16/20 19:54; Start 07/13/20 at 22:00 Pantoprazole Sodium (Protonix) 40 mg DAILYAC PO Last administered on 07/17/20 06:35; Start 07/14/20 at 07:30 Celecoxib (CeleBREX) 200 mg BID PO Last administered on 07/17/20 10:34; Start 07/13/20 at 22:00 Cyanocobalamin (Vitamin B-12) 5,000 mcg DAILY PO Last administered on 07/17/20 10:34; Start 07/14/20 at 09:00 Fluticasone Propionate (Flonase) 2 spray DAILY NS Last administered on 07/17/20 10:33; Start 07/14/20 at 09:00 Multivitamins (Thera M Plus) 1 tab DAILY PO Last administered on 07/17/20 10:34; Start 07/14/20 at 09:00 Non-Formulary Medication (Ubidecarenone (Coq-10)) 200 mg DAILY PO ; Start 07/14/20 at 09:00; Status UNV Potassium Chloride/Dextrose/ Sod Cl 1,000 ml @ 80 mls/hr [id number] IV Last administered on 07/13/20 23:17; Start 07/13/20 at 22:00; Stop 07/14/20 at 10:29; Status DC Sodium Chloride 1,000 ml @ 100 mls/hr Q10H IV Last administered on 07/15/20 03:17; Start 07/14/20 at 08:30 Pramipexole Dihydrochloride (miraPEX) 0.5 mg QHS PO Last administered on 07/16/20 19:55; Start 07/14/20 at 21:00 Tramadol HCl (Ultram) 50 mg PRN Q6HRS PRN PO MODERATE PAIN Last administered on 07/15/20 17:49; Start 07/15/20 at 10:45 Tramadol HCl (Ultram) 100 mg PRN Q6HRS PRN PO SEVERE PAIN Last administered on 07/17/20 03:41; Start 07/15/20 at 10:45 Ondansetron HCl (Zofran Odt) 4 mg PRN Q6HRS PRN PO NAUSEA/VOMITING; Start 07/15/20 at 19:00 Methylprednisolone Acetate (DEPO-Medrol 40MG VIAL) 40 mg 1X ONCE IM Last administered on 07/16/20at 10:45; Start 07/16/20 at 10:45; Stop 07/16/20 at 10:46; Status DC Methylprednisolone Acetate (DEPO-Medrol 40MG VIAL) 40 mg 1X ONCE IM Last administered on 07/16/20at 10:45; Start 07/16/20 at 10:45; Stop 07/16/20 at 10:46; Status DC Bupivacaine HCl (Sensorcaine-Mpf 0.25%) 10 ml 1X ONCE IJ Last administered on 07/16/20at 10:45; Start 07/16/20 at 10:45; Stop 07/16/20 at 10:46; Status DC Cyclobenzaprine HCl (Flexeril) 10 mg TID PO Last administered on 07/17/20at 10:34; Start 07/16/20 at 14:00 Pregabalin (Lyrica) 25 mg DAILY PO ; Start 07/17/20 at 09:00; Stop 07/17/20 at 08:38; Status DC Pregabalin (Lyrica) 300 mg QHS PO ; Start 07/16/20 at 21:00; Status Cancel Pregabalin (Lyrica) 100 mg TID PO Last administered on 07/17/20at 10:35; Start 07/16/20 at 14:00 Duloxetine HCl (Cymbalta) 60 mg DAILY PO Last administered on 07/17/20at 10:34; Start 07/17/20 at 09:00 Pregabalin (Lyrica) 25 mg DAILY PO Last administered on 07/17/20at 10:36; Start 07/17/20 at 09:00 Active Scripts Active Reported Lyrica (Pregabalin) 100 Mg Capsule 1 Cap PO TID Proair Hfa Inhaler (Albuterol Sulfate) 8.5 Gm Hfa.aer.ad 2 Puff IH PRN Q4-6HRS PRN 21 Days Flonase Allergy Relief (Fluticasone Propionate) 9.9 Ml [place].susp 2 Sprays NS DAILY Valacyclovir (Valacyclovir Hcl) 1,000 Mg Tablet 1,000 Mg PO PRN PRN Valacyclovir (Valacyclovir Hcl) 1,000 Mg Tablet 1 Tab PO DAILY Children's Aspirin (Aspirin) 81 Mg Tab.chew 81 Mg PO DAILY Tramadol Hcl 50 Mg Tablet 50 Mg PO Q6HRS PRN Mirtazapine 15 Mg Tablet 1 Tab PO QHS Cymbalta (Duloxetine Hcl) 30 Mg Capsule.dr 1 Cap PO DAILY Atorvastatin Calcium 10 Mg Tablet 1 Tab PO DAILY Levothyroxine Sodium 88 Mcg Tablet 1 Tab PO DAILY Lyrica (Pregabalin) 50 Mg Capsule 25 Mg PO AM ONLY Pantoprazole Sodium (Pantoprazole Sodium) 40 Mg Tablet.dr 40 Mg PO DAILYAC Cyclobenzaprine Hcl 10 Mg Tablet 1 Tab PO TID Mirapex (Pramipexole Di-Hcl) 0.25 Mg Tablet 0.5 Mg PO HS Celebrex (Celecoxib) 200 Mg Capsule 200 Mg PO BID 30 Days Coq-10 (Ubidecarenone) 100 Mg Capsule 200 Mg PO DAILY Vitamin B-12 (Cyanocobalamin (Vitamin B-12)) 5,000 Mcg Tab.rapdis 1 Tab PO DAILY 30 Days Centrum Silver Women Tablet (Multivits-Min/Iron/FA/Lutein) 1 Each Tablet 1 Each PO DAILY [antwon 40] Vitals/I & O Vital Sign - Last 24 Hours 07/16/20 07/16/20 07/16/20 07/16/20 15:00 16:09 19:10 19:50 Temp 97.9 98.7 97.9 98.7 Pulse 84 80 Resp 18 20 B/P (MAP) 148/70 (96) 141/85 (103) Pulse Ox 100 96 O2 Delivery Room Air Room Air Room Air Room Air 07/16/20 07/17/20 07/17/20 07/17/20 23:11 03:00 03:41 04:41 Temp 98.4 97.7 98.4 97.7 Pulse 89 74 Resp 20 20 17 18 B/P (MAP) 133/76 (95) 123/65 (84) Pulse Ox 96 95 95 O2 Delivery Room Air Room Air Room Air 07/17/20 07/17/20 07/17/20 07:00 07:47 10:48 Temp 98.7 98.4 98.7 98.4 Pulse 77 84 Resp 18 18 B/P (MAP) 134/86 (102) 119/73 (88) Pulse Ox 96 94 95 O2 Delivery Room Air Room Air Room Air Intake and Output 07/16/20 07/16/20 07/17/20 15:00 23:00 07:00 Intake Total 600 ml 600 ml 500 ml Balance 600 ml 600 ml 500 ml Justicifation of Admission Dx: Justifications for Admission: Justification of Admission Dx: Yes Altered Mental Status: Altered Mental Status KARYN MORALES MD Jul 17, 2020 11:53
--- NOTE | 2020-07-17 11:58 | NUR ---
SW following. Spoke with RN and reviewed chart. Pt lives with her brother. Pt COVID pending and on room air. Pt on 1:1 for SI attempt. Spoke with pt today. Pt agreeable to in-patient psychiatric treatment. Referral to [facility] with [facility] per approval from pt. PRASHANTH printed clinicals and spoke with Corin from [facility] who with work on in-patient psychiatric placement. SW to follow. Addendum: 07/17/20 at 1517 by KEMI ALFORD COVID results came back negative. PRASHANTH phoned and faxed this to Twila at [facility], , ext [phone], (fax). SW waiting on final confirmation of acceptance. RN notified. Daughter Claudia ([phone]) called with questions about POA for HC. PRASHANTH returned call per approval from pt. SW answered questions. SW following.
--- NOTE | 2020-07-17 13:35 | PDOC ---
[employer] PROGRESS NOTE Date of Service DOS: DATE: 07/17/20 TIME: 13:33 Chief Complaint Chief Complaint IMPRESSION Acute toxic encephalopathy - due to opioid and PCP use. Will give IVF Chronic opioids - have friends and family educated on narcan and given prescription by her prescribing physician given this is a second admission within a 3 month period with prior requiring vent chronic back pain -status post steroid injection in the SI joint by Dr. Reinoso Fibromyalgia Degenerative disk disease of lumbar vertebrae HLD Respiratory depression - down to 88% on room air Abnormal CXR - likely from atelectasis 2/2 opioid use, will monitor Morbid Obesity - will have mechanical technologist to see MAJOR DEPRESSION WITH suicide gesture PLAN FEN - NPO, D5 1/2 NSS w/ 20meq KCL PPX - lovenox FULL CODE Dispo -pending inpatient psych inpatient for above Pending pat team evaluation Continue one-to-one sitter History of Present Illness History of Present Illness Ms Arnett is a 60yo F w/ PMHx chronic back pain, fibromyalgia, morbid obesity and prior accidental opioid overdose in April 2020 who presents to [facility] emergency department on 07/12/2020 from [facility] for altered mental status per her son. At 1300 he heard some banging noises upstairs and checked on her approximately an hour later and found her on the floor next to her bed with slurred speech, unintelligible words and jerking tremors and unusual eye movements. She was last seen normal at 2215 on 07/12/2020. Seen bedside in ED she has an expressive aphasia, has been monitored with some bizarre movements, and has fine tremors in all 4 extremities, does withdraw from pain. Cycloplegic eye movement, she does not focus. Labs reveal WBC 11.3, Hb 13.7, platelets 214, INR 1, lactate 1.5, NA 140, K3.7, BUN 25, CR 1.1, glucose 83, CK 286, troponin 0. LFTs within normal limits. Sinus tachycardia at 104bpm, NO ST elevation, QRS 118ms, QT/QTc 344/453ms, incomplete RBBB Head CT with no acute abnormalities CT neck with no acute cervical spine fracture, but advanced degenerative disc disease greatest C4-5 through C6-7 and to lesser degree at C3-4 and C7-T1 with mild spinal stenosis at C6-7. CXR with mild interstitial thickening Code stroke was called, outside the window for tPA. MRI brain with no acute abnormality. After MRI results a UDS returned positive for Opioids and PCP. Admitted for further care. 07/15: Patient evaluated with family at bedside. Patient admits to intentionally trying to overdose on her home medications, and left a suicide note to her family members. Consultation was placed to psychiatry. 1:1 sitter Afebrile. She is shaky, feels like she is withdrawing from her pain medications. More clearheaded today. Notes that she is not interested in inpatient psych and would like to go home as soon as is feasible. She is very surprised by PCP positive UDS. 07/17/2020 Patient with improved mental status today. Pain has been better controlled after steroid injection. No acute events overnight. Patient seen and examined bedside. Patient's chart, labs, images were reviewed and discussed with RN Vitals/I&O Vitals/I&O: Vital Signs Date Time Temp Pulse Resp B/P (MAP) Pulse Ox O2 Delivery O2 Flow Rate FiO2 07/17/20 10:48 98.4 84 18 119/73 (88) 95 Room Air 98.4 I & O 07/16/20 07/16/20 07/17/20 15:00 23:00 07:00 Intake Total 600 ml 600 ml 500 ml Balance 600 ml 600 ml 500 ml Physical Exam Physical Exam: GEN: No apparent distress. Alert and oriented HEENT: Normal cephalic, atraumatic, external auditory canals are patent NECK: Supple, no JVD, no thyromegaly was noted LUNGS: Bilateral crackles HEART: RRR, S1, S2 present. Peripheral pulses intact, no obvious murmurs noted ABDOMEN: Soft, nontender. Positive bowel sounds, no organomegaly, normal bowel sounds EXTREMITIES: Without clubbing, cyanosis, or edema. Pedal pulses intact. Negative Homans sign General: Alert, Oriented X3, Cooperative, No acute distress, Other (MUCH MORE ALERT ) Heart: Regular rate, Normal S1, Normal S2 Lungs: Clear Abdomen: Normal bowel sounds, Soft, No tenderness, No hepatosplenomegaly, No masses Extremities: No clubbing, No cyanosis, No edema, Normal pulses, No tenderness/swelling Skin: No rashes, No breakdown, No significant lesion Labs Labs: Laboratory Tests Test 07/16/20 17:06 07/16/20 22:17 07/17/20 06:05 07/17/20 07:04 Glucose (Fingerstick) 98 mg/dL (70-99) 100 mg/dL (70-99) 118 mg/dL (70-99) Sodium Level 144 mmol/L (136-145) Potassium Level 3.2 mmol/L (3.5-5.1) Chloride Level 106 mmol/L (98-107) Carbon Dioxide Level 28 mmol/L (21-32) Anion Gap 10 (6-14) Blood Urea Nitrogen 13 mg/dL (7-20) Creatinine 0.6 mg/dL (0.6-1.0) Estimated GFR (Cockcroft-Gault) 101.3 Glucose Level 126 mg/dL (70-99) Calcium Level 8.8 mg/dL (8.5-10.1) Test 07/17/20 11:42 Glucose (Fingerstick) 127 mg/dL (70-99) Assessment and Plan Assessmemt and Plan Problems Medical Problems: (1) Altered mental status Status: Acute (2) Expressive aphasia Status: Acute Comment Review of Relevant I have reviewed the following items génesis (where applicable) has been applied. Medications: Current Medications Medications (Trade) Dose Ordered Sig/Kristen Route PRN Reason Start Time Stop Time Status Last Admin Dose Admin Cyclobenzaprine HCl (Flexeril) 10 mg TID PO 07/16/20 14:00 07/17/20 10:34 Pregabalin (Lyrica) 100 mg TID PO 07/16/20 14:00 07/17/20 10:35 Duloxetine HCl (Cymbalta) 60 mg DAILY PO 07/17/20 09:00 07/17/20 10:34 Pregabalin (Lyrica) 25 mg DAILY PO 07/17/20 09:00 07/17/20 10:36 Justifications for Admission Other Justification MARGARETH ROSALES MD Jul 17, 2020 13:35
[2020-07-17 15:00] VITALS: BP 127/83
[2020-07-17 19:00] VITALS: BP 129/85
--- NOTE | 2020-07-17 20:19 | NUR ---
EMT here to take patient to [facility], at 2004, belongings bag given to EMT, patient doesn't know if her phone is in bag, dentures with pt, secured to randy, taken off the unit.
--- NOTE | 2020-07-17 21:07 | PDOC ---
F/U PHYSCH PROG NOTE Subjective: female with major depressive disorder seen for routine follow-up. Progress is reviewed with nursing staff. She is on constant observation for safety. She appears relatively interactive and coherent. Her outlook appears a lot better than yesterday. Reporting improvement in her mood and anxiety. Tolerating Cymbalta 60 mg. Aside from that denies suicidal or homicidal thoughts. Denies auditory or visual hallucinations. No evidence of reynaldo or hypomania. Objective: 14 point review of system is otherwise negative except for as stated above. Vital Signs: Vital Signs Date Time Temp Pulse Resp B/P (MAP) Pulse Ox O2 Delivery O2 Flow Rate FiO2 07/17/20 19:19 18 Room Air 07/17/20 19:00 98.3 89 129/85 (100) 97 98.3 Labs: Laboratory Tests Test 07/16/20 22:17 07/17/20 06:05 07/17/20 07:04 07/17/20 11:42 Glucose (Fingerstick) 100 mg/dL (70-99) H 118 mg/dL (70-99) H 127 mg/dL (70-99) H Sodium Level 144 mmol/L (136-145) Potassium Level 3.2 mmol/L (3.5-5.1) L Chloride Level 106 mmol/L (98-107) Carbon Dioxide Level 28 mmol/L (21-32) Anion Gap 10 (6-14) Blood Urea Nitrogen 13 mg/dL (7-20) Creatinine 0.6 mg/dL (0.6-1.0) Estimated GFR (Cockcroft-Gault) 101.3 Glucose Level 126 mg/dL (70-99) H Calcium Level 8.8 mg/dL (8.5-10.1) Test 07/17/20 18:11 Glucose (Fingerstick) 114 mg/dL (70-99) H Laboratory Tests 07/17/20 06:05 Medications: Current Medications Medications (Trade) Dose Ordered Sig/Kristen Start Time Stop Time Status Last Admin Dose Admin Acetaminophen (Tylenol) 650 mg PRN Q6HRS PRN 07/13/20 22:00 07/17/20 20:22 DC 07/15/20 03:16 650 MG Albuterol Sulfate (Ventolin Neb Soln) 2.5 mg PRN Q4HRS PRN 07/13/20 22:00 9/8/20 20:22 DC Aspirin (Aspirin Chewable) 81 mg [id number] 07/14/20 08:00 07/17/20 20:22 DC 07/17/20 10:33 81 MG Aspirin (Aspirin Rectal Supp) 300 mg 1X ONCE 07/13/20 15:45 07/13/20 15:49 DC 07/13/20 16:01 300 MG Atorvastatin Calcium (Lipitor) 10 mg HS 07/13/20 21:00 07/17/20 20:22 DC 07/16/20 19:55 10 MG Bupivacaine HCl (Sensorcaine-Mpf 0.25%) 10 ml 1X ONCE 07/16/20 10:45 07/16/20 10:46 DC 07/16/20 10:45 10 ML Celecoxib (CeleBREX) 200 mg BID 07/13/20 22:00 07/17/20 20:22 DC 07/17/20 10:34 200 MG Cyanocobalamin (Vitamin B-12) 5,000 mcg DAILY 07/14/20 09:00 07/17/20 20:22 DC 07/17/20 10:34 5,000 MCG Cyclobenzaprine HCl (Flexeril) 10 mg TID 07/16/20 14:00 07/17/20 20:22 DC 07/17/20 15:31 10 MG Dextrose (Dextrose 50%-Water Syringe) 12.5 gm PRN Q15MIN PRN 07/13/20 17:45 07/17/20 20:22 DC Duloxetine HCl (Cymbalta) 60 mg DAILY 07/17/20 09:00 07/17/20 20:22 DC 07/17/20 10:34 60 MG Enoxaparin Sodium (Lovenox 40mg Syringe) 40 mg Q24H 07/13/20 22:00 07/17/20 20:22 DC 07/16/20 23:30 40 MG Fluticasone Propionate (Flonase) 2 spray DAILY 07/14/20 09:00 07/17/20 20:22 DC 07/17/20 10:33 2 SPRAY Insulin Human Lispro (HumaLOG) 0-5 UNITS TIDWMEALS 07/14/20 08:00 07/17/20 20:22 DC 07/14/20 18:45 3 UNITS Levothyroxine Sodium (Synthroid) 88 mcg DAILY06 07/14/20 06:00 07/17/20 20:22 DC 07/17/20 06:35 88 MCG Methylprednisolone Acetate (DEPO-Medrol 40MG VIAL) 40 mg 1X ONCE 07/16/20 10:45 07/16/20 10:46 DC 07/16/20 10:45 40 MG Mirtazapine (Remeron) 15 mg QHS 07/13/20 22:00 07/17/20 20:22 DC 07/16/20 19:54 15 MG Multivitamins (Thera M Plus) 1 tab DAILY 07/14/20 09:00 07/17/20 20:22 DC 07/17/20 10:34 1 TAB Non-Formulary Medication (Ubidecarenone (Coq-10)) 200 mg DAILY 07/14/20 09:00 UNV Ondansetron HCl (Zofran Odt) 4 mg PRN Q6HRS PRN 07/15/20 19:00 07/17/20 20:22 DC Ondansetron HCl (Zofran) 4 mg PRN Q4HRS PRN 07/13/20 22:00 07/17/20 20:22 DC Pantoprazole Sodium (Protonix) 40 mg DAILYAC 07/14/20 07:30 07/17/20 20:22 DC 07/17/20 06:35 40 MG Potassium Chloride/Dextrose/ Sod Cl 1,000 ml @ 80 mls/hr [id number] 07/13/20 22:00 07/14/20 10:29 DC 07/13/20 23:17 80 MLS/HR Pramipexole Dihydrochloride (miraPEX) 0.5 mg QHS 07/14/20 21:00 07/17/20 20:22 DC 07/16/20 19:55 0.5 MG Pregabalin (Lyrica) 25 mg DAILY 07/17/20 09:00 07/17/20 20:22 DC 07/17/20 10:36 25 MG Sodium Chloride 1,000 ml @ 100 mls/hr Q10H 07/14/20 08:30 07/17/20 20:22 DC 07/15/20 03:17 100 MLS/HR Tramadol HCl (Ultram) 100 mg PRN Q6HRS PRN 07/15/20 10:45 07/17/20 20:22 DC 07/17/20 18:19 100 MG Physical Exam: Mental Status Exam: female appears her stated age, fairly groomed fairly nourished Cooperative and interactive Alert and oriented Coherent, goal-directed Denies auditory or visual hallucinations Denies suicidal or homicidal thoughts No abnormal perceptions noted Mood is improving Affect is improving Insight is fair Judgment is fair Impulse control is fair Concentration and attention is fine fair Recent and remote memory intact Physical Exam: Refer to Physician's note. CIRCULAR SAW FILER: No focal deficit MSK: No EPS, TDK, or abnormal involuntary movements Diagnosis: 1. Suicidal attempt by overdose 2. Major depressive disorder, recurrent, severe without psychotic features Assessment: She is a female with longstanding history of major depressive disorder admitted with suicidal attempt and worsening depression in context of her major depressive disorder. Apparently, pain is the major precipitating factor for her impulsive suicidal attempt. However, her depression was not sufficiently under control prior to pain episodes. She has limited coping skills to manage her depression and impulsivity. She needs inpatient psychiatric admission for crisis stabilization.She is in agreement to increase dose of Cymbalta to 60 mg. Today she is reporting much improvement in her overall wellbeing including mood and energy level. She is lot more alert and relatively more interactive. Plan: Continue Cymbalta to 60 mg daily for depression. Continue Remeron as is Risks, benefits, alternatives of the treatment are discussed. She is in agreement with plan and voiced understanding. Adverse drug reactions of the medications prescribed are also discussed in detail. Psychoeducation provided. Supportive psychotherapy provided. Monitor closely for suicidality, and safety. Thank you for involving inpatient care JAKE DOMINGUEZ MD Jul 17, 2020 21:07
--- NOTE | 2020-07-18 06:00 | EKG ---
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
== END 2020-07-17 20:10 | DRG 917 ==
LOC: ER 15:28 → 5 NORTH 17:20
PROVIDERS: ADMIT Internal Medicine; ATTEND Internal Medicine
PROC: 3E0U33Z Introduction of Anti-inflammatory into Joints, Percutaneous Approach (ICD-10-PCS; principal; 2020-07-16)
PROC: 3E0U3BZ Introduction of Anesthetic Agent into Joints, Percutaneous Approach (ICD-10-PCS; 2020-07-16)
DX: T40.2X2A Poisoning by other opioids, intentional self-harm, initial encounter (principal); G92 Toxic encephalopathy; F33.2 Major depressive disorder, recurrent severe without psychotic features; J98.11 Atelectasis; R47.01 Aphasia; F11.129 Opioid abuse with intoxication, unspecified; Z20.828 Contact with and (suspected) exposure to other viral communicable diseases; E03.9 Hypothyroidism, unspecified; E66.01 Morbid (severe) obesity due to excess calories; E78.00 Pure hypercholesterolemia, unspecified; E78.5 Hyperlipidemia, unspecified; F16.90 Hallucinogen use, unspecified, uncomplicated; F41.9 Anxiety disorder, unspecified; G89.29 Other chronic pain; G47.00 Insomnia, unspecified; I10 Essential (primary) hypertension; M48.02 Spinal stenosis, cervical region; M48.04 Spinal stenosis, thoracic region; M51.36 Other intervertebral disc degeneration, lumbar region; M79.7 Fibromyalgia; Z79.899 Other long term (current) drug therapy; Z81.8 Family history of other mental and behavioral disorders; Z66 Do not resuscitate; Z91.5 Personal history of self-harm; M19.90 Unspecified osteoarthritis, unspecified site; Z68.35 Body mass index [BMI] 35.0-35.9, adult; Z88.8 Allergy status to other drugs, medicaments and biological substances; Z88.2 Allergy status to sulfonamides; Y92.89 Other specified places as the place of occurrence of the external cause
CPT/HCPCS: 36415; 70450; 70551; 71045; 72125; 80048; 80053; 80061; 80307; 80329; 81001; 82140; 82550; 82553; 82962; 83605; 83735; 84145; 84484; 85025; 85610; 85730; 87077; 87086; 87186; 93005; 94760; 96360; 96361; 99285; G0480; J1030; J1650; J1815; J3480; J3490; J7030; P9612; 92610-GN; G0378; U0003-CS